=== PATIENT | male | born 1930 | race Caucasian/White ===

== ENCOUNTER → 2016-11-22 | Outpatient (CLI) | payer MEDICARE, BC ==
--- NOTE | 2016-11-22 15:53 | XR ---
EXAMINATION TYPE: XR chest 2V DATE OF EXAM: 11/22/2016 3:49 PM COMPARISON: 10/05/2012 INDICATION: Cough TECHNIQUE: Frontal and lateral views of the chest are obtained. FINDINGS: The heart size is normal. The pulmonary vasculature is normal. The lungs are clear. Spondylosis is present. Pacemaker overlies left chest. 2 leads are present. IMPRESSION: 1. No acute pulmonary process.
== END | disposition home or self-care (01) ==
LOC: RADXRMAIN 15:39
PROVIDERS: ATTEND Internal Medicine
DX: R05 Cough (principal)
CPT/HCPCS: 71020

== ENCOUNTER → 2017-04-04 | Outpatient (CLI) | payer MEDICARE, BC ==
[2017-04-04 16:36] LABS: CH 33.2; CHCM 33.2; HDW 2.49; HGB 13.2 gm/dL (13.0-17.5); MCH 34.1 pg (25.0-35.0); MCV 100.5 fL (80.0-100.0); Macrocytosis Slight; Mean Platelet Volume 6.9; RBC 3.88 m/uL (4.30-5.90); RDW 14.6 % (11.5-15.5); WBC 9.9 k/uL (3.8-10.6)
[2017-04-04 16:48] LABS: Anion Gap 9 mmol/L; Blood Urea Nitrogen 25 mg/dL (9-20); Calcium 8.9 mg/dL (8.4-10.2); Carbon Dioxide 27 mmol/L (22-30); Chloride 108 mmol/L (98-107); Glucose 109 mg/dL (74-99); Non-African American GFR(MDRD) >60 (>60 ml/min/1.73 sqM); Potassium 4.8 mmol/L (3.5-5.1); Sodium 144 mmol/L (137-145)
== END ==
LOC: LABWHC1 15:55
PROVIDERS: ATTEND Internal Medicine Interventional Cardiology
DX: I25.10 Atherosclerotic heart disease of native coronary artery without angina pectoris (principal); I49.5 Sick sinus syndrome
CPT/HCPCS: 36415; 80048; 85027

== ENCOUNTER → 2017-09-09 | Outpatient (CLI) | payer MEDICARE, BC ==
--- NOTE | 2017-09-09 13:52 | XR ---
EXAMINATION TYPE: XR chest 2V DATE OF EXAM: 09/09/2017 COMPARISON: NONE INDICATION: Cough TECHNIQUE: Frontal and lateral views of the chest are obtained. FINDINGS: The heart size is normal. The pulmonary vasculature is normal. Appears to be some minimal blunting the right costophrenic angle. Correlate for atelectasis. IMPRESSION: 1. Suggestion of minimal atelectasis right costophrenic angle.
== END | disposition home or self-care (01) ==
LOC: RADXRMAIN 12:56
PROVIDERS: ATTEND Internal Medicine
DX: R05 Cough (principal)
CPT/HCPCS: 71020

== ENCOUNTER 2018-03-05 00:47 | Inpatient (IN) | payer MEDICARE, BC ==
--- NOTE | 2018-03-05 01:00 | ED ---
General Adult HPI - General Chief complaint: Chest Pain Stated complaint: Chest Pain Time Seen by Provider: 03/05/18 00:54 Source: patient, EMS Mode of arrival: EMS Limitations: no limitations - History of Present Illness Initial comments: This patient is an 88-year-old man brought by ambulance to be evaluated for not feeling well. The patient reports that he has not been feeling well since the morning, going on about 16 hours now. He states he is not able to characterize his symptoms well. When he started having some vomiting EMS was called and brought him here to be evaluated. The patient is denying any chest pain or dyspnea. He is in fact not having pain anywhere. Onset/Timin -: hour(s) Consistency: constant Improves with: none Worsens with: none Associated Symptoms: malaise Treatments Prior to Arrival: none - Related Data Home Medications Medication Instructions Recorded Confirmed Aspirin 81 mg PO BID 03/28/14 03/05/18 Gabapentin [Neurontin] 300 mg PO DAILY 03/28/14 03/05/18 Montelukast [Singulair] 10 mg PO DAILY 03/28/14 03/05/18 Omeprazole [PriLOSEC] 20 mg PO BID 03/28/14 03/05/18 Phenytoin Sodium Extended 300 mg PO BID 03/28/14 03/05/18 [Dilantin] Budesonide [Pulmicort] 0 mg INHALATION BID 03/29/14 03/05/18 Multivitamin [Men's Multi-Vitamin] 1 tab PO DAILY 03/29/14 03/05/18 Anacin 500 mg PO DAILY PRN 03/05/18 03/05/18 Ascorbic Acid [Vitamin C] 500 mg PO HS 03/05/18 03/05/18 Citalopram Hydrobromide 20 mg PO BID 03/05/18 03/05/18 [Citalopram HBr] Glucosamine Sulfate 1,500 mg PO HS 03/05/18 03/05/18 Loperamide HCl [Imodium A-D] 2 mg PO DAILY PRN 03/05/18 03/05/18 Magnesium Oxide [Mag-Ox] 250 mg PO HS 03/05/18 03/05/18 Metoprolol Succinate (ER) [Toprol 50 mg PO DAILY 03/05/18 03/05/18 Xl] Tart Prabhakar 1 tab PO HS 03/05/18 03/05/18 diphenhydrAMINE [Benadryl] 25 mg PO DAILY PRN 03/05/18 03/05/18 levETIRAcetam [Keppra] 500 mg PO Q12HR 03/05/18 03/05/18 Allergies Allergy/AdvReac Type Severity Reaction Status Date / Time adhesive Allergy Rash/Hives Verified 03/05/18 11:09 iodine Allergy Anaphylaxis Verified 03/05/18 11:09 Review of Systems ROS Statement: Those systems with pertinent positive or pertinent negative responses have been documented in the HPI. ROS Other: All systems not noted in ROS Statement are negative. Constitutional: Reports: weakness Respiratory: Reports: cough. Denies: dyspnea Cardiovascular: Denies: chest pain, orthopnea, edema, syncope Endocrine: Reports: fatigue Gastrointestinal: Reports: vomiting. Denies: abdominal pain Genitourinary: Denies: dysuria, hematuria Musculoskeletal: Denies: back pain Skin: Denies: rash Neurological: Denies: headache Past Medical History Past Medical History: Asthma, Hypertension, Seizure Disorder Additional Past Medical History / Comment(s): gout, joint, History of Any Multi-Drug Resistant Organisms: None Reported Past Surgical History: Unable to Obtain, Orthopedic Surgery Past Psychological History: Depression Smoking Status: Never smoker Past Alcohol Use History: Daily Past Drug Use History: None Reported General Exam Limitations: no limitations General appearance: alert, in distress Head exam: Absent: atraumatic, normocephalic Eye exam: Present: normal appearance ENT exam: Present: mucous membranes dry Neck exam: Present: normal inspection, full ROM Respiratory exam: Present: respiratory distress. Absent: wheezes, rales, rhonchi, stridor Cardiovascular Exam: Present: normal rhythm, tachycardia, systolic murmur. Absent: diastolic murmur, rubs, gallop GI/Abdominal exam: Present: soft. Absent: distended, tenderness, guarding, rebound, rigid, mass Extremities exam: Present: normal inspection, normal capillary refill. Absent: pedal edema, calf tenderness Back exam: Present: normal inspection. Absent: CVA tenderness (R), CVA tenderness (L) Neurological exam: Present: alert Skin exam: Present: warm, dry, intact, normal color. Absent: rash Course Vital Signs 03/05/18 03/05/18 03/05/18 00:48 02:20 03:13 Temperature 101.5 F H 101.7 F H Pulse Rate 125 H 106 H 101 H Respiratory 30 H 18 22 Rate Blood Pressure 148/67 126/60 97/55 O2 Sat by Pulse 94 L 93 L 93 L Oximetry 03/05/18 03/05/18 03/05/18 03:55 04:05 04:15 Temperature Pulse Rate 88 99 96 Respiratory 18 18 18 Rate Blood Pressure 77/41 100/53 90/46 O2 Sat by Pulse 96 94 L 94 L Oximetry 03/05/18 03/05/18 04:28 04:52 Temperature Pulse Rate 94 93 Respiratory 18 18 Rate Blood Pressure 97/55 102/54 O2 Sat by Pulse 94 L 95 Oximetry EKG Findings - EKG Comments: EKG Findings:: Total EKG does show sinus tachycardia with a rate of 123. There is a left bundle-branch block which was present on the comparison EKG from March 2014. Also pre-existing left axis deviation. - EKG Results: EKG: interpreted by ERMD, sinus rhythm (Rate approximate 123 bpm) - Blocks, Flushing, Hypertrophy, ST Abn: AV and intraventricular conduction: left bundle branch block (fixed/intermittent , complete/incomplete) QRS axis and voltage: left axis deviation (-30 to -90) Medical Decision Making - Lab Data Result diagrams: 03/08/18 05:51 03/08/18 05:51 Lab Results 03/05/18 03/05/18 03/05/18 Range/Units 00:53 00:53 00:53 WBC 10.4 (3.8-10.6) k/uL RBC 4.11 L (4.30-5.90) m/uL Hgb 12.9 L (13.0-17.5) gm/dL Hct 38.1 L (39.0-53.0) % MCV 92.7 (80.0-100.0) fL MCH 31.3 (25.0-35.0) pg MCHC 33.8 (31.0-37.0) g/dL RDW 14.3 (11.5-15.5) % Plt Count 260 (150-450) k/uL Neutrophils % 81 % Lymphocytes % 14 % Monocytes % 1 % Eosinophils % 4 % Basophils % 0 % Neutrophils # 8.4 H (1.3-7.7) k/uL Lymphocytes # 1.5 (1.0-4.8) k/uL Monocytes # 0.1 (0-1.0) k/uL Eosinophils # 0.4 (0-0.7) k/uL Basophils # 0.0 (0-0.2) k/uL PT (9.0-12.0) sec INR (<1.2) APTT (22.0-30.0) sec Sodium 142 (137-145) mmol/L Potassium 4.2 (3.5-5.1) mmol/L Chloride 106 (98-107) mmol/L Carbon Dioxide 17 L (22-30) mmol/L Anion Gap 19 mmol/L BUN 19 (9-20) mg/dL Creatinine 1.00 (0.66-1.25) mg/dL Est GFR (CKD-EPI)AfAm 78 (>60 ml/min/1.73 sqM) Est GFR (CKD-EPI)NonAf 67 (>60 ml/min/1.73 sqM) Glucose 177 H (74-99) mg/dL Lactic Ac Sepsis Rflx Plasma Lactic Acid Stanford 5.0 H* (0.7-2.0) mmol/L Calcium 9.1 (8.4-10.2) mg/dL Total Bilirubin 0.4 (0.2-1.3) mg/dL AST 38 (17-59) U/L ALT 24 (21-72) U/L Alkaline Phosphatase 182 H (38-126) U/L Troponin I (0.000-0.034) ng/mL NT-Pro-B Natriuret Pep pg/mL Total Protein 7.1 (6.3-8.2) g/dL Albumin 3.8 (3.5-5.0) g/dL Urine Color Urine Appearance (Clear) Urine pH (5.0-8.0) Ur Specific [place] (1.001-1.035) Urine Protein (Negative) Urine Glucose (UA) (Negative) Urine Ketones (Negative) Urine Blood (Negative) Urine Nitrite (Negative) Urine Bilirubin (Negative) Urine Urobilinogen (<2.0) mg/dL Ur Leukocyte Esterase (Negative) Urine RBC (0-5) /hpf Urine WBC (0-5) /hpf Ur Squamous Epith Cells (0-4) /hpf Urine Bacteria (None) /hpf Urine Mucus (None) /hpf 05/06/18 05/06/18 05/06/18 Range/Units 00:53 00:53 00:53 WBC (3.8-10.6) k/uL RBC (4.30-5.90) m/uL Hgb (13.0-17.5) gm/dL Hct (39.0-53.0) % MCV (80.0-100.0) fL MCH (25.0-35.0) pg MCHC (31.0-37.0) g/dL RDW (11.5-15.5) % Plt Count (150-450) k/uL Neutrophils % % Lymphocytes % % Monocytes % % Eosinophils % % Basophils % % Neutrophils # (1.3-7.7) k/uL Lymphocytes # (1.0-4.8) k/uL Monocytes # (0-1.0) k/uL Eosinophils # (0-0.7) k/uL Basophils # (0-0.2) k/uL PT 10.6 (9.0-12.0) sec INR 1.1 (<1.2) APTT 18.9 L (22.0-30.0) sec Sodium (137-145) mmol/L Potassium (3.5-5.1) mmol/L Chloride (98-107) mmol/L Carbon Dioxide (22-30) mmol/L Anion Gap mmol/L BUN (9-20) mg/dL Creatinine (0.66-1.25) mg/dL Est GFR (CKD-EPI)AfAm (>60 ml/min/1.73 sqM) Est GFR (CKD-EPI)NonAf (>60 ml/min/1.73 sqM) Glucose (74-99) mg/dL Lactic Ac Sepsis Rflx Plasma Lactic Acid Stanford (0.7-2.0) mmol/L Calcium (8.4-10.2) mg/dL Total Bilirubin (0.2-1.3) mg/dL AST (17-59) U/L ALT (21-72) U/L Alkaline Phosphatase (38-126) U/L Troponin I 0.175 H* (0.000-0.034) ng/mL NT-Pro-B Natriuret Pep 740 pg/mL Total Protein (6.3-8.2) g/dL Albumin (3.5-5.0) g/dL Urine Color Urine Appearance (Clear) Urine pH (5.0-8.0) Ur Specific [place] (1.001-1.035) Urine Protein (Negative) Urine Glucose (UA) (Negative) Urine Ketones (Negative) Urine Blood (Negative) Urine Nitrite (Negative) Urine Bilirubin (Negative) Urine Urobilinogen (<2.0) mg/dL Ur Leukocyte Esterase (Negative) Urine RBC (0-5) /hpf Urine WBC (0-5) /hpf Ur Squamous Epith Cells (0-4) /hpf Urine Bacteria (None) /hpf Urine Mucus (None) /hpf 03/05/18 03/05/18 Range/Units 01:27 01:28 WBC (3.8-10.6) k/uL RBC (4.30-5.90) m/uL Hgb (13.0-17.5) gm/dL Hct (39.0-53.0) % MCV (80.0-100.0) fL MCH (25.0-35.0) pg MCHC (31.0-37.0) g/dL RDW (11.5-15.5) % Plt Count (150-450) k/uL Neutrophils % % Lymphocytes % % Monocytes % % Eosinophils % % Basophils % % Neutrophils # (1.3-7.7) k/uL Lymphocytes # (1.0-4.8) k/uL Monocytes # (0-1.0) k/uL Eosinophils # (0-0.7) k/uL Basophils # (0-0.2) k/uL PT (9.0-12.0) sec INR (<1.2) APTT (22.0-30.0) sec Sodium (137-145) mmol/L Potassium (3.5-5.1) mmol/L Chloride (98-107) mmol/L Carbon Dioxide (22-30) mmol/L Anion Gap mmol/L BUN (9-20) mg/dL Creatinine (0.66-1.25) mg/dL Est GFR (CKD-EPI)AfAm (>60 ml/min/1.73 sqM) Est GFR (CKD-EPI)NonAf (>60 ml/min/1.73 sqM) Glucose (74-99) mg/dL Lactic Ac Sepsis Rflx Y Plasma Lactic Acid Stanford (0.7-2.0) mmol/L Calcium (8.4-10.2) mg/dL Total Bilirubin (0.2-1.3) mg/dL AST (17-59) U/L ALT (21-72) U/L Alkaline Phosphatase (38-126) U/L Troponin I (0.000-0.034) ng/mL NT-Pro-B Natriuret Pep pg/mL Total Protein (6.3-8.2) g/dL Albumin (3.5-5.0) g/dL Urine Color Yellow Urine Appearance Clear (Clear) Urine pH 5.5 (5.0-8.0) Ur Specific [place] 1.011 (1.001-1.035) Urine Protein Trace H (Negative) Urine Glucose (UA) Negative (Negative) Urine Ketones Negative (Negative) Urine Blood Small H (Negative) Urine Nitrite Negative (Negative) Urine Bilirubin Negative (Negative) Urine Urobilinogen <2.0 (<2.0) mg/dL Ur Leukocyte Esterase Negative (Negative) Urine RBC 27 H (0-5) /hpf Urine WBC 1 (0-5) /hpf Ur Squamous Epith Cells <1 (0-4) /hpf Urine Bacteria Rare H (None) /hpf Urine Mucus Rare H (None) /hpf Disposition Clinical Impression: Fever, Sepsis, Lactic acidosis Disposition: ADMITTED IP TO THIS [facility] Condition: Serious
[2018-03-05 01:09] LABS: Basophils % (A) 0 %; Eosinophils # (A) 0.4 k/uL (0-0.7); Eosinophils % (A) 4 %; HCT 38.1 % (39.0-53.0); HGB 12.9 gm/dL (13.0-17.5); Lymphocytes # (A) 1.5 k/uL (1.0-4.8); Lymphocytes % (A) 14 %; MCH 31.3 pg (25.0-35.0); MCHC 33.8 g/dL (31.0-37.0); MCV 92.7 fL (80.0-100.0); Mean Platelet Volume 6.9; Monocytes # (A) 0.1 k/uL (0-1.0); Monocytes % (A) 1 %; Neutrophils # (A) 8.4 k/uL (1.3-7.7); Neutrophils % (A) 81 %; Platelet Count 260 k/uL (150-450); RBC 4.11 m/uL (4.30-5.90); RDW 14.3 % (11.5-15.5); WBC 10.4 k/uL (3.8-10.6)
[2018-03-05] MEDS ORDERED: cefTRIAXone IN SWFI 1,000 MG/10 ML SYRINGE IVP STA (01:11)
[2018-03-05] MEDS ORDERED: ONDANSETRON 4 MG/2 ML VIAL IVP STA (01:15)
--- NOTE | 2018-03-05 01:20 | XR ---
EXAM: XR Chest, 1 View CLINICAL HISTORY: ITS.REASON XR Reason: Fever TECHNIQUE: Frontal view of the chest. COMPARISON: No relevant prior studies available. FINDINGS: Lungs: Unremarkable. No consolidation. Pleural space: Unremarkable. No pneumothorax. Heart: Unremarkable. No cardiomegaly. Mediastinum: Unremarkable. Bones/joints: Unremarkable. Other findings: Left chest pulse generator in place. IMPRESSION: No acute findings.
[2018-03-05 01:21] LABS: Albumin 3.8 g/dL (3.5-5.0); Calcium 9.1 mg/dL (8.4-10.2); Potassium 4.2 mmol/L (3.5-5.1); Total Bilirubin 0.4 mg/dL (0.2-1.3); Total Protein 7.1 g/dL (6.3-8.2)
[2018-03-05] MEDS ORDERED: SODIUM CHLORIDE 0.9% 2,000 ML IV ONE (01:23)
[2018-03-05 01:28] LABS: INR 1.1 (<1.2)
[2018-03-05 01:29] LABS: Prothrombin Time 10.6 sec (9.0-12.0)
[2018-03-05 01:44] LABS: Appearance,Urine Clear (Clear); Bacteria,Urine Rare /hpf; Bilirubin,Urine Negative (Negative); Blood,Urine Small (Negative); Color,Urine Yellow; Glucose,Urine (UA) Negative (Negative); Ketones,Urine Negative (Negative); Leukocyte Esterase,Urine Negative (Negative); Mucus,Urine Rare /hpf; Nitrite,Urine Negative (Negative); PH, Urine 5.5 (5.0-8.0); Protein,Urine Trace (Negative); RBC,Urine 27 /hpf (0-5); Specific Gravity,Urine 1.011 (1.001-1.035); Squamous Epithelial Cell,Urine <1 /hpf (0-4); Urobilinogen,Urine <2.0 mg/dL (<2.0); WBC,Urine 1 /hpf (0-5)
[2018-03-05 01:45] LABS: Partial Thromboplastin Time 18.9 sec (22.0-30.0)
[2018-03-05] MEDS ORDERED: SODIUM CHLORIDE 0.9% 1,000 ML IV ONE (02:12)
[2018-03-05] MEDS ORDERED: ACETAMINOPHEN TAB 325 MG TAB PO STA (02:12)
[2018-03-05] MEDS ORDERED: IBUPROFEN 600 MG TAB PO STA (03:17)
[2018-03-05] MEDS ORDERED: AZITHROMYCIN 500 MG TAB PO STA (03:36)
[2018-03-05 07:55] VITALS: BMI 30.2
[2018-03-05] MEDS: METOPROLOL SUCCINATE (ER) 50 MG TAB.ER.24H PO SCH (08:09)
[2018-03-05] MEDS: CITALOPRAM HYDROBROMIDE 20 MG TAB PO SCH (08:18)
[2018-03-05] MEDS: FAMOTIDINE 20 MG/2 ML VIAL IV SCH ×2 (08:18→20:45)
[2018-03-05] MEDS: ASPIRIN 81 MG PO SCH ×2 (08:18→20:41)
[2018-03-05] MEDS: GABAPENTIN 300 MG CAP PO SCH (08:18)
[2018-03-05] MEDS: PHENYTOIN SODIUM EXTENDED 100 MG CAP PO SCH ×2 (08:18→20:41)
[2018-03-05] MEDS: MONTELUKAST 10 MG TAB PO SCH (08:18)
[2018-03-05] MEDS ORDERED: NON-FORMULARY DRUG (Omeprazole [Prilosec] 20 MG) PO SCH (09:00)
[2018-03-05] MEDS: BUDESONIDE 0.5 MG/2 ML NEBU INHALATION SCH ×2 (11:45→20:48)
[2018-03-05] MEDS: MULTIVITAMINS, THERA 1 EACH TAB PO SCH (12:01)
[2018-03-05] MEDS ORDERED: VANCOMYCIN IV PER PHARMACY 1 EACH MISC MISCELLANE PRN (12:42)
--- NOTE | 2018-03-05 13:05 | P.HPIM ---
History of Present Illness H&P Date: 03/05/18 Chief Complaint: Generalized weakness and shaking chills Bobby Del Valle is an 88-year-old male patient of Dr. Adams who presented to [facility] emergency room with a chief complaint of generalized weakness that started about 24 hours prior to presentation and has been worsening, patient also started having shaking chills at home and he decided to come to emergency room, he was evaluated in the emergency room, and had evidence of sepsis, patient had tachycardia with a heart rate of 125, tachypnea with a respiratory rate of 30, fever with a temperature of 101.5, and elevated lactic acid at 5, no clear source of infection was established, patient had chest x-ray which was described as normal, and urine analysis that did not show any significant infection, patient denies any skin ulcerations or infections, he was started on IV antibiotics and IV fluid and was admitted to telemetry floor. Blood culture and urine culture were done, this morning 2 blood culture were positive for gram-positive cocci in pairs and in chains, IV vancomycin was added to her regimen and infectious disease consultation was requested. Also during the initial evaluation troponin level was slightly elevated, cardiology consultation was requested. Past Medical History Past Medical History: Asthma, Hypertension, Seizure Disorder Additional Past Medical History / Comment(s): gout, joint, History of Any Multi-Drug Resistant Organisms: None Reported Past Surgical History: Unable to Obtain, Orthopedic Surgery Additional Past Surgical History / Comment(s): History of pacemaker placement initially placed 8 years ago and replaced about 1 year ago patient had a recent pacemaker check at cardiology office. Past Anesthesia/Blood Transfusion Reactions: No Reported Reaction Past Psychological History: Depression Smoking Status: Never smoker Past Alcohol Use History: Daily Past Drug Use History: None Reported Medications and Allergies Home Medications Medication Instructions Recorded Confirmed Type Aspirin 81 mg PO BID 03/28/14 03/05/18 History Gabapentin [Neurontin] 300 mg PO DAILY 03/28/14 03/05/18 History Montelukast [Singulair] 10 mg PO DAILY 03/28/14 03/05/18 History Omeprazole [PriLOSEC] 20 mg PO BID 03/28/14 03/05/18 History Phenytoin Sodium Extended 300 mg PO BID 03/28/14 03/05/18 History [Dilantin] Budesonide [Pulmicort] 0 mg INHALATION BID 03/29/14 03/05/18 History Multivitamin [Men's Multi-Vitamin] 1 tab PO DAILY 03/29/14 03/05/18 History Anacin 500 mg PO DAILY PRN 03/05/18 03/05/18 History Ascorbic Acid [Vitamin C] 500 mg PO HS 03/05/18 03/05/18 History Citalopram Hydrobromide 20 mg PO BID 03/05/18 03/05/18 History [Citalopram HBr] Glucosamine Sulfate 1,500 mg PO HS 03/05/18 03/05/18 History Loperamide HCl [Imodium A-D] 2 mg PO DAILY PRN 03/05/18 03/05/18 History Magnesium Oxide [Mag-Ox] 250 mg PO HS 03/05/18 03/05/18 History Metoprolol Succinate (ER) [Toprol 50 mg PO DAILY 03/05/18 03/05/18 History Xl] Tart Prabhakar 1 tab PO HS 03/05/18 03/05/18 History diphenhydrAMINE [Benadryl] 25 mg PO DAILY PRN 03/05/18 03/05/18 History levETIRAcetam [Keppra] 500 mg PO Q12HR 03/05/18 03/05/18 History Allergies Allergy/AdvReac Type Severity Reaction Status Date / Time adhesive Allergy Rash/Hives Verified 03/05/18 11:09 iodine Allergy Anaphylaxis Verified 03/05/18 11:09 Physical Exam Vitals: Vital Signs Temp Pulse Pulse Resp BP BP Pulse Ox 03/05/18 12:00 70 16 03/05/18 11:53 68 03/05/18 11:45 68 03/05/18 11:24 98.1 F 70 16 96/54 96 03/05/18 07:57 97.6 F 86 18 93/54 95 03/05/18 06:21 99.9 F H 95 18 105/75 94 L 03/05/18 04:52 93 18 102/54 95 03/05/18 04:28 94 18 97/55 94 L 03/05/18 04:15 96 18 90/46 94 L 03/05/18 04:05 99 18 100/53 94 L 03/05/18 03:55 88 18 77/41 96 03/05/18 03:13 101.7 F H 101 H 22 97/55 93 L 03/05/18 02:20 106 H 18 126/60 93 L 03/05/18 00:48 101.5 F H 125 H 30 H 148/67 94 L Intake and Output 03/04/18 03/05/18 03/05/18 22:59 06:59 14:59 Other: Weight 92.9 kg 92.9 kg In general patient is alert and oriented 3 in no apparent distress HEENT head normocephalic and atraumatic Neck is supple no JVD no goiter no lymphadenopathy Chest exam reveals a few scattered rhonchi no wheezing Cardiac exam reveals regular heart sounds no gallops no murmurs Abdomen is soft nontender no organomegaly with normal bowel sounds Extremity exam reveals no edema no cyanosis or clubbing Neurological examination reveals no gross focal deficit Results CBC & Chem 7: 03/05/18 00:53 03/05/18 00:53 Labs: Abnormal Lab Results - Last 24 Hours (Table) 03/05/18 03/05/18 03/05/18 Range/Units 00:53 00:53 00:53 RBC 4.11 L (4.30-5.90) m/uL Hgb 12.9 L (13.0-17.5) gm/dL Hct 38.1 L (39.0-53.0) % Neutrophils # 8.4 H (1.3-7.7) k/uL APTT (22.0-30.0) sec Carbon Dioxide 17 L (22-30) mmol/L Glucose 177 H (74-99) mg/dL Plasma Lactic Acid Stanford 5.0 H* (0.7-2.0) mmol/L Alkaline Phosphatase 182 H (38-126) U/L Troponin I (0.000-0.034) ng/mL Urine Protein (Negative) Urine Blood (Negative) Urine RBC (0-5) /hpf Urine Bacteria (None) /hpf Urine Mucus (None) /hpf 03/05/18 03/05/18 03/05/18 Range/Units 00:53 00:53 01:27 RBC (4.30-5.90) m/uL Hgb (13.0-17.5) gm/dL Hct (39.0-53.0) % Neutrophils # (1.3-7.7) k/uL APTT 18.9 L (22.0-30.0) sec Carbon Dioxide (22-30) mmol/L Glucose (74-99) mg/dL Plasma Lactic Acid Stanford (0.7-2.0) mmol/L Alkaline Phosphatase (38-126) U/L Troponin I 0.175 H* (0.000-0.034) ng/mL Urine Protein Trace H (Negative) Urine Blood Small H (Negative) Urine RBC 27 H (0-5) /hpf Urine Bacteria Rare H (None) /hpf Urine Mucus Rare H (None) /hpf 03/05/18 Range/Units 03:50 RBC (4.30-5.90) m/uL Hgb (13.0-17.5) gm/dL Hct (39.0-53.0) % Neutrophils # (1.3-7.7) k/uL APTT (22.0-30.0) sec Carbon Dioxide (22-30) mmol/L Glucose (74-99) mg/dL Plasma Lactic Acid Stanford 2.3 H* (0.7-2.0) mmol/L Alkaline Phosphatase (38-126) U/L Troponin I (0.000-0.034) ng/mL Urine Protein (Negative) Urine Blood (Negative) Urine RBC (0-5) /hpf Urine Bacteria (None) /hpf Urine Mucus (None) /hpf Microbiology - Last 24 Hours (Table) 03/04/18 00:53 Blood Culture Gram Stain - Preliminary Blood 03/05/18 00:53 Blood Culture - Final Blood 03/05/18 01:27 Urine Culture - Preliminary Urine,Voided Thrombosis Risk Factor Assmnt - Choose All That Apply Any of the Below Risk Factors Present?: Yes Each Factor Represents 1 point: Obesity (BMI >25) Other Risk Factors: Yes Each Risk Factor Represents 3 Points: Age 75 years or older Thrombosis Risk Factor Assessment Total Risk Factor Score: 4 Thrombosis Risk Factor Assessment Level: Moderate Risk Assessment and Plan Plan: #1 sepsis, initial source of infection is not entirely clear, chest x-ray does not reveal any evidence of pneumonia, and urine analysis did not reveal any significant urinary tract infection, blood culture is positive for gram- positive cocci in pairs and in chains, currently patient was started on IV Rocephin and IV Zithromax in the emergency room for presumed bronchitis, IV vancomycin was added when blood culture results were positive. Continue with current management at this time, initial lactic acid at 5, patient is maintained on IV fluid, repeat d-dimer at 2.3 #2 elevated troponin level cardiology consultation is requested. #3 underlying history of seizure disorder maintained on Dilantin continue #4 underlying history of hypertension maintained on metoprolol #5 underlying history of cardiac arrhythmia was history of pacemaker placement #6 underlying history of asthma maintained on Pulmicort and Singulair continue #7 underlying history of depression maintained on Celebrex continue Medication and labs were reviewed patient was seen and examined Continue was current management, IV vancomycin was added Will recheck labs in a.m. Will follow closely
[2018-03-05] MEDS: SODIUM CHLORIDE 0.9% 1,000 ML IV SCH ×2 (13:27→20:44)
[2018-03-05] MEDS ORDERED: VANCOMYCIN 1,750 MG in SODIUM CHLORIDE 0.9% 250 ML IVPB ONE (13:30)
--- NOTE | 2018-03-05 14:16 | CONS ---
CONSULTATION Mr. Del Valle is an 88-year-old gentleman who was brought to the emergency room because patient was not feeling well. Patient has not been feeling well since yesterday morning. He did not had any fever or chills. He has some nonproductive cough. The patient denied any chest pain, shortness of breath. This patient has a history of hypertension, history of seizure disorder. History of asthma and history of permanent pacemaker. HOME MEDICATIONS: Include metoprolol 50 mg daily, citalopram, Pulmicort, Dilantin, aspirin, gabapentin, singular, Prilosec. PHYSICAL EXAMINATIONS: In the emergency room this patient was noticed to have a temperature of 101.5. Blood pressure was 148/67 mmHg and the patient was tachycardic. At present, patient is feeling well. He is not in any respiratory distress. Heart rate is 70 per minute, blood pressure is 100/54 mmHg. Head and ENT examination is negative. NECK: Supple. There is no increase in jugular venous pressure. Both the carotid pulses are felt. There is no bruit. Chest is symmetrical. Heart: First and second heart sounds are normal. Lungs are fairly clear to auscultation and percussion. ABDOMEN: Soft. Liver and spleen are not enlarged. Extremities: Peripheral pulses are 1+. Patient's EKG shows sinus tachycardia with left bundle branch block. The patient's lactic acid was 5.0. White count is 10.4, initial troponin was 0.1750. The patient's BNP level was 740. IMPRESSION: This patient is admitted with infection and possible sepsis syndrome with EKGs shows normal sinus rhythm with a left bundle branch block. There is no evidence of any acute coronary syndrome. Echo and Doppler study will be obtained. MMODL / IJN: [id number] /
[2018-03-05] MEDS ORDERED: AZITHROMYCIN 500 MG TAB PO SCH (21:00)
[2018-03-06] MEDS: VANCOMYCIN 1,500 MG in SODIUM CHLORIDE 0.9% 250 ML IVPB SCH ×2 (04:11→20:12)
[2018-03-06] MEDS: BUDESONIDE 0.5 MG/2 ML NEBU INHALATION SCH ×2 (08:03→19:45)
[2018-03-06] MEDS ORDERED: BENZOCAINE/MENTHOL LOZENG 1 EACH LOZENGE MUCOUS MEM PRN (08:45)
[2018-03-06] MEDS: CITALOPRAM HYDROBROMIDE 20 MG TAB PO SCH (08:46)
[2018-03-06] MEDS: GABAPENTIN 300 MG CAP PO SCH (08:46)
[2018-03-06] MEDS: ASPIRIN 81 MG PO SCH ×2 (08:46→20:11)
[2018-03-06] MEDS: levETIRAcetam 500 MG TAB PO SCH ×2 (08:46→20:12)
[2018-03-06] MEDS: METOPROLOL SUCCINATE (ER) 50 MG TAB.ER.24H PO SCH (08:46)
[2018-03-06] MEDS: FAMOTIDINE 20 MG/2 ML VIAL IV SCH (08:47)
[2018-03-06] MEDS: MONTELUKAST 10 MG TAB PO SCH (08:47)
[2018-03-06] MEDS: MULTIVITAMINS, THERA 1 EACH TAB PO SCH (08:47)
[2018-03-06] MEDS: PHENYTOIN SODIUM EXTENDED 100 MG CAP PO SCH ×2 (08:47→20:12)
[2018-03-06 09:13] LABS: Basophils # (A) 0.1 k/uL (0-0.2); Basophils % (A) 0 %; Eosinophils # (A) 0.2 k/uL (0-0.7); Eosinophils % (A) 1 %; HCT 30.4 % (39.0-53.0); HGB 10.4 gm/dL (13.0-17.5); Lymphocytes # (A) 1.7 k/uL (1.0-4.8); Lymphocytes % (A) 6 %; MCH 32.3 pg (25.0-35.0); MCHC 34.3 g/dL (31.0-37.0); MCV 93.9 fL (80.0-100.0); Monocytes # (A) 0.7 k/uL (0-1.0); Monocytes % (A) 2 %; Neutrophils # (A) 27.6 k/uL (1.3-7.7); Neutrophils % (A) 90 %; Platelet Count 176 k/uL (150-450); RBC 3.23 m/uL (4.30-5.90); RDW 14.7 % (11.5-15.5)
[2018-03-06 09:15] LABS: ALT 31 U/L (21-72); AST 26 U/L (17-59); Albumin 2.6 g/dL (3.5-5.0); Alkaline Phosphatase 141 U/L (38-126); Anion Gap 10 mmol/L; Blood Urea Nitrogen 16 mg/dL (9-20); Calcium 7.6 mg/dL (8.4-10.2); Carbon Dioxide 19 mmol/L (22-30); Chloride 112 mmol/L (98-107); Glucose 184 mg/dL (74-99); Potassium 3.8 mmol/L (3.5-5.1); Sodium 141 mmol/L (137-145); Total Bilirubin 0.3 mg/dL (0.2-1.3); Total Protein 5.3 g/dL (6.3-8.2)
[2018-03-06 09:19] LABS: WBC 30.8 k/uL (3.8-10.6)
--- NOTE | 2018-03-06 11:30 | P.PN ---
Subjective Progress Note Date: 03/06/18 Bobby Del Valle is an 88-year-old male patient of Dr. Adams who presented to [facility] emergency room with a chief complaint of generalized weakness that started about 24 hours prior to presentation and has been worsening, patient also started having shaking chills at home and he decided to come to emergency room, he was evaluated in the emergency room, and had evidence of sepsis, patient had tachycardia with a heart rate of 125, tachypnea with a respiratory rate of 30, fever with a temperature of 101.5, and elevated lactic acid at 5, no clear source of infection was established, patient had chest x-ray which was described as normal, and urine analysis that did not show any significant infection, patient denies any skin ulcerations or infections, he was started on IV antibiotics and IV fluid and was admitted to telemetry floor. Blood culture and urine culture were done, this morning 2 blood culture were positive for gram-positive cocci in pairs and in chains, IV vancomycin was added to her regimen and infectious disease consultation was requested. Also during the initial evaluation troponin level was slightly elevated, cardiology consultation was requested. 03/06/2018 patient has had an increase in his white count to 30.8. Has been afebrile through the night and this morning. Discussed with infectious disease. Unasyn was added and they've ordered a computed tomography scan of the abdomen and pelvis. Patient also is on vancomycin. Patient reports that he is still having some cough and prior to admission also had some sinus congestion and now he does admit to having postnasal drip. Mucinex has been ordered. He denies any chest pain or shortness of breath. Per nursing patient had been slightly short of breath with earlier this morning but no significant change in vitals. Patient denies any diarrhea. Denies any burning with urination. Objective - Vital Signs Vital signs: Vital Signs Temp 97.7 F 03/06/18 08:30 Pulse 82 03/06/18 08:30 Resp 16 03/06/18 08:30 BP 160/78 03/06/18 08:30 Pulse Ox 94 L 03/06/18 08:30 Intake & Output 03/05/18 03/06/18 03/06/18 18:59 06:59 18:59 Intake Total 800 875 240 Output Total 500 600 Balance 800 375 -360 Weight 92.9 kg 94.6 kg Intake: Intake, IV Titration 800 750 Amount Sodium Chloride 0.9% 1, 800 500 000 ml @ 100 mls/hr IV . [facility]H [facility] Rx#:[id number] Vancomycin 1,750 mg In 250 Sodium Chloride 0.9% 250 ml @ 125 mls/hr IVPB ONCE ONE Rx#:[id number] Oral 125 240 Output: Urine 500 600 Other: # Voids 2 # Bowel Movements 1 0 - Exam Head normocephalic Neck supple Lungs mild wheezing improved with cough Heart regular rate and rhythm S1-S2, no rub or gallop Abdomen is soft nontender nondistended positive bowel sounds no hepatosplenomegaly Extremities no edema Neuro alert and orientated to 3 - Labs CBC & Chem 7: 03/06/18 08:41 03/06/18 08:41 Labs: Abnormal Lab Results - Last 24 Hours (Table) 03/06/18 03/06/18 Range/Units 08:41 08:41 WBC 30.8 H* (3.8-10.6) k/uL RBC 3.23 L (4.30-5.90) m/uL Hgb 10.4 L (13.0-17.5) gm/dL Hct 30.4 L (39.0-53.0) % Neutrophils # 27.6 H (1.3-7.7) k/uL Chloride 112 H (98-107) mmol/L Carbon Dioxide 19 L (22-30) mmol/L Glucose 184 H (74-99) mg/dL Calcium 7.6 L (8.4-10.2) mg/dL Alkaline Phosphatase 141 H (38-126) U/L Total Protein 5.3 L (6.3-8.2) g/dL Albumin 2.6 L (3.5-5.0) g/dL Microbiology - Last 24 Hours (Table) 03/04/18 00:53 Blood Culture Gram Stain - Preliminary Blood Blood Culture - Preliminary Non Hemolytic Strep 03/05/18 01:40 Blood Culture Gram Stain - Preliminary Blood Blood Culture - Preliminary Non Hemolytic Strep 03/05/18 01:40 Blood Culture - Final Blood 03/05/18 00:53 Blood Culture - Final Blood 03/05/18 01:27 Urine Culture - Preliminary Urine,Voided Assessment and Plan Assessment: #1 sepsis, initial source of infection is not entirely clear, chest x-ray does not reveal any evidence of pneumonia, and urine analysis did not reveal any significant urinary tract infection, blood culture is positive for gram- positive cocci in pairs and in chains, currently patient was started on IV Rocephin and IV Zithromax in the emergency room for presumed bronchitis, IV vancomycin was added when blood culture results were positive. Continue with current management at this time, initial lactic acid at 5 has decreased to 2.3 White count has increased to 30.8. Discussed with infectious disease. They've added Unasyn and ordered a computed tomography scan of the abdomen and pelvis #2 elevated troponin level : Patient seen by cardiology. No evidence of acute coronary syndrome. Echocardiogram ordered #3 underlying history of seizure disorder maintained on Dilantin and Keppra continue #4 underlying history of hypertension maintained on metoprolol #5 underlying history of cardiac arrhythmia was history of pacemaker placement #6 underlying history of asthma maintained on Pulmicort and Singulair continue #7 underlying history of depression maintained on Celebrex continue #8 anemia possibly related to IV fluids and sepsis. No evidence of active bleeding. Check iron studies. GI prophylaxis Pepcid and DVT prophylaxis Lovenox I performed an examination of the patient and discussed their management with the physician Associate Quality Engineer. I have reviewed the Physician Associate Quality Engineer's notes and agree with the documented findings and plan of care
--- NOTE | 2018-03-06 11:55 | ECHOF ---
Referral Reason:sob MEASUREMENTS -------- HEIGHT: 175.3 cm WEIGHT: 94.3 kg BP: 105/51 RVIDd: 3.7 cm (< 3.3) IVSd: 1.4 cm (0.6 - 1.1) LVIDd: 4.4 cm (3.9 - 5.3) LVPWd: 1.5 cm (0.6 - 1.1) IVSs: 1.8 cm LVIDs: 3.9 cm LVPWs: 1.5 cm LA Diam: 3.8 cm (2.7 - 3.8) LAESV Index (A-L): 41.10 ml/m Ao Diam: 3.6 cm (2.0 - 3.7) AV Cusp: 1.8 cm (1.5 - 2.6) LA Diam: 5.2 cm (2.7 - 3.8) MV EXCURSION: 21.866 mm (> 18.000) MV EF SLOPE: 102 mm/s (70 - 150) EPSS: 0.7 cm MV E Asa: 0.70 m/s MV DecT: 232 ms MV A Asa: 0.91 m/s MV E/A Ratio: 0.77 RAP: 5.00 mmHg RVSP: 60.88 mmHg FINDINGS -------- Paced rhythm. This was a technically adequate study. The left ventricular size is normal. There is mild concentric left ventricular hypertrophy. Overa ll left ventricular systolic function is low-normal with, an EF between 50 - 55 %. The right ventricle is mildly enlarged. The left atrium is moderately dilated. LA is severely dilated >40 ml/m2 The right atrial size is normal. The aortic valve is trileaflet, and appears structurally normal. No aortic stenosis or regurgitation. Mild mitral regurgitation is present. Moderate tricuspid regurgitation present. There is moderate pulmonary hypertension. The right aimee tricular systolic pressure, as measured by Doppler, is 60.88mmHg. There is no pulmonic regurgitation present. The aortic root size is normal. Normal inferior vena cava with normal inspiratory collapse consistent with estimated right atrial pre ssure of 5 mmHg. There is no pericardial effusion. CONCLUSIONS -------- 1. The left ventricular size is normal. 2. There is mild concentric left ventricular hypertrophy. 3. Overall left ventricular systolic function is low-normal with, an EF between 50 - 55 %. 4. The right ventricle is mildly enlarged. 5. The left atrium is moderately dilated. 6. LA is severely dilated >40 ml/m2 7. The aortic valve is trileaflet, and appears structurally normal. No aortic stenosis or regurgitati on. 8. Mild mitral regurgitation is present. 9. Moderate tricuspid regurgitation present. 10. There is moderate pulmonary hypertension. 11. The right ventricular systolic pressure, as measured by Doppler, is 60.88mmHg. 12. There is no pulmonic regurgitation present. 13. The aortic root size is normal. 14. Normal inferior vena cava with normal inspiratory collapse consistent with estimated right atrial pressure of 5 mmHg. 15. There is no pericardial effusion. [employer] LEAD WORKER: Roseanne Saldaña RDCS
--- NOTE | 2018-03-06 12:17 | CONS ---
CONSULTATION DATE OF SERVICE: 03/06/2018 REASON FOR CONSULTATION: Bacteremia. HISTORY OF PRESENT ILLNESS: The patient is an 88-year-old male who has been brought into the ER with chief complaints of generalized not feeling well, his symptoms have been going on for a day prior to presentation to the hospital. Patient told me that he was having uncontrolled shakiness. He was unable to control it but not specifically running any fever. He says no. However, on arrival to the ER, the patient did have a fever of 101.5 degrees Fahrenheit. Patient subsequently has been evaluated by the ER physician. Workup including a chest x-ray that was reported negative for any acute infiltrate. Patient did have a normal white count of 10.4 on admission. Lactic acid was elevated to 5.0, repeat was 2.3. Urine not significantly positive. The patient was started on Rocephin. His blood culture came back positive with gram-positive cocci that prompted this consultation and this morning his white count came to 30,000. Reviewing his ER sheet it did mention that patient did have an episode of vomiting prior to the presentation to the hospital; however, now specifically he denies having any vomiting or any abdominal pain or any diarrhea or constipation to me. History remains to be not be reliable from this patient. REVIEW OF SYSTEMS: CONSTITUTIONAL: Positive for weakness along with a fever. EYES: No complaint. ENT: No complaint. RESPIRATORY: Mild cough, that is chronic for him. CARDIOVASCULAR: No complaint. GENITOURINARY: No complaint. GASTROINTESTINAL: As per HPI. MUSCULOSKELETAL: No complaint. INTEGUMENTARY: No complaint. PSYCHOLOGICAL: No complaint. ENDOCRINE: No complaint. NEUROLOGIC: No complaint. PAST MEDICAL HISTORY: Significant for asthma, hypertension, seizure disorder, gout. PAST SURGICAL HISTORY: Pacemaker placement. SOCIAL HISTORY: No history of smoking. Positive for drinking, no drug use. FAMILY HISTORY: No pertinent findings noticed. ALLERGIES: To IODINE. MEDICATIONS: Include the patient is currently on aspirin, Pulmicort, Celexa, Pepcid, Neurontin, Mucinex, Keppra, Mag oxide, Toprol-XL, Singulair, Theragran, Dilantin and vancomycin pharmacy to dose. PHYSICAL EXAMINATION: Blood pressure 162/78 with a pulse of 82, temperature 97.7. He is 94% on room air. General description is an elderly male, lying in bed in no distress. No tachypnea or accessory muscle for respiration use. HEENT: Shows slight pallor. No scleral icterus. Oral mucosa is dry. No pharyngeal thrush neck trachea central no thyromegaly lungs unlabored breathing, decreased breath sounds in the bases no wheeze heart S1, S2. Regular rate and rhythm and rhythm. Abdomen is soft, no guarding, rigidity, no organomegaly. EXTREMITIES: No edema of the feet. SKIN EXAMINATION: No rash or mass palpable. NEUROLOGICAL: Patient is awake, alert, oriented x2, mood and affect normal. LABS: Hemoglobin 10.4, white count 30,000, BUN of 16 creatinine 0.72. Lactic acid 5 down to 2.3. Urine has been negative. chest report negative. DIAGNOSTIC IMPRESSION AND PLAN: Patient with sepsis in a patient did have a fever significantly elevated white count, elevated lactic acid, symptom of generalized weakness and did have an episode of vomiting with question of possible and intraabdominal source, now with evidence of Gram- positive bacteremia more of a gram-positive cocci in chains likely it was possible Enterococcus, more likely but etiology. PLAN: 1. We will check a CT abdominal pelvis with oral contrast only to rule out any intraabdominal pathology and should also rule out any infiltrate or consultation in the lung bases. 2. We will keep the patient on vancomycin while waiting for the final ID of this pathogen. However, discontinue Rocephin and start the patient on Unasyn 3 g q.6. 3. Gentle IV fluid. 4. Depending upon his clinical response, as well as cultures, will adjust the medication further if needed. Thank you for this consultation. Will follow this patient along with you. MMODL / IJN: [id number] /
[2018-03-06] MEDS: BARIUM SULFATE 450 ML ORAL.SUSP BOTTLE PO PRN ×2 (12:21→15:29)
[2018-03-06] MEDS: AMPICILLIN-SULBACTAM 3 GM in SODIUM CHLORIDE 0.9% 100 ML IVPB SCH ×3 (12:51→23:13)
[2018-03-06] MEDS: SODIUM CHLORIDE 0.9% 1,000 ML IV SCH ×2 (12:51→20:11)
[2018-03-06] MEDS: ENOXAPARIN 40 MG/0.4 ML SYRINGE SQ SCH (12:51)
[2018-03-06] MEDS: guaiFENesin 600 MG TABLET.ER PO SCH ×2 (15:23→20:11)
--- NOTE | 2018-03-06 15:25 | P.PN ---
Subjective Progress Note Date: 03/06/18 This is an 88-year-old patient presented to the hospital mainly with symptoms of generalized weakness as well as associated fever and chills at home. He was evaluated in the emergency room and had evidence of sepsis, he was also tachycardic with a heart rate in the 120s. Sinus tachycardia with left bundle branch block pattern. No evidence of acute coronary syndrome. Echocardiogram with Doppler study was performed which revealed a normal left ventricular systolic function. Moderate TR and moderate pulmonary hypertension. White blood cell count today is up to 30,000, consultation requested with ID. Objective - Vital Signs Vital signs: Vital Signs Temp 97.7 F 03/06/18 08:30 Pulse 78 03/06/18 11:50 Resp 18 03/06/18 11:50 BP 138/71 03/06/18 11:50 Pulse Ox 96 03/06/18 11:50 Intake & Output 03/05/18 03/06/18 03/06/18 18:59 06:59 18:59 Intake Total 482 147 5047 Output Total 500 600 Balance 800 375 540 Weight 92.9 kg 94.6 kg Intake: Intake, IV Titration 800 750 900 Amount Ampicillin-Sulbactam 3 gm 100 In Sodium Chloride 0.9% 100 ml @ 100 mls/hr IVPB Q6HR [facility] Rx#:[id number] Sodium Chloride 0.9% 1, 800 500 800 000 ml @ 100 mls/hr IV . Q10H [facility] Rx#:[id number] Vancomycin 1,750 mg In 250 Sodium Chloride 0.9% 250 ml @ 125 mls/hr IVPB ONCE ONE Rx#:[id number] Oral 125 240 Output: Urine 500 600 Other: # Voids 2 3 # Bowel Movements 1 0 - Exam PHYSICAL EXAMINATION: HEENT: Head is atraumatic, normocephalic. Pupils equal, round. Neck is supple. There is no elevated jugular venous pressure. HEART EXAMINATION: Heart S1, S2 normal. No murmur or gallop heard. CHEST EXAMINATION: Lungs are clear to auscultation and precussion. No chest wall tenderness is noted on palpation or with deep breathing. ABDOMEN: Soft, nontender. Bowel sounds are heard. No organomegaly noted. EXTREMITIES: 2+ peripheral pulses with no evidence of peripheral edema and no calf tenderness noted. NEUROLOGIC patient is awake, alert and oriented -3. . - Labs CBC & Chem 7: 03/06/18 08:41 03/06/18 08:41 Labs: Abnormal Lab Results - Last 24 Hours (Table) 03/06/18 03/06/18 Range/Units 08:41 08:41 WBC 30.8 H* (3.8-10.6) k/uL RBC 3.23 L (4.30-5.90) m/uL Hgb 10.4 L (13.0-17.5) gm/dL Hct 30.4 L (39.0-53.0) % Neutrophils # 27.6 H (1.3-7.7) k/uL Chloride 112 H (98-107) mmol/L Carbon Dioxide 19 L (22-30) mmol/L Glucose 184 H (74-99) mg/dL Calcium 7.6 L (8.4-10.2) mg/dL Alkaline Phosphatase 141 H (38-126) U/L Total Protein 5.3 L (6.3-8.2) g/dL Albumin 2.6 L (3.5-5.0) g/dL Microbiology - Last 24 Hours (Table) 03/05/18 01:27 Urine Culture - Final Urine,Voided 03/04/18 00:53 Blood Culture Gram Stain - Preliminary Blood Blood Culture - Preliminary Non Hemolytic Strep 03/05/18 01:40 Blood Culture Gram Stain - Preliminary Blood Blood Culture - Preliminary Non Hemolytic Strep 03/05/18 01:40 Blood Culture - Final Blood 03/05/18 00:53 Blood Culture - Final Blood Assessment and Plan Plan: Assessment and plan #1 sepsis, source of infection is not entirely clear, ideas on the surface. #2 abnormal troponin, not consistent with acute coronary syndrome, #3 hypertension #4 prior pacemaker implantation Number 5 seizure disorder Plan Echocardiogram with Doppler study was performed which revealed normal left ventricular systolic function. We will follow this patient along with you now on an as-needed basis only, please don't hesitate to call if you have any questions at all. DNP note has been reviewed, I agree with a documented findings and plan of care. Patient was seen and examined.
[2018-03-06 17:21] LABS: Iron Saturation 12.95 (15.00-50.00)
--- NOTE | 2018-03-06 18:37 | CT ---
EXAMINATION TYPE: CT abdomen pelvis wo con DATE OF EXAM: 03/06/2018 COMPARISON: NONE HISTORY: Patient poor historian. Abdominal pain and vomiting. CT DLP: 751.1 mGycm Automated exposure control for dose reduction was used. TECHNIQUE: Helical acquisition of images was performed from the lung bases through the pelvis. FINDINGS: There are bilateral pleural effusions. Heart is enlarged. There is patchy atelectasis at the lung bas es. Liver appears normal. Bile ducts are not dilated. Gallbladder is distended. Gallbladder is not dilate d. Gallbladder measures almost 4 cm. Spleen appears normal. There is no pancreatic mass. There is no adrenal mass. The kidneys show no hydronephrosis. There are multiple bilateral renal calc ifications that measure up to almost 1 cm. There is no hydronephrosis. There are exophytic cortical c yst on the lateral left kidney. The largest measures 4 cm. There is small right renal parapelvic cyst . There is small cyst in the upper pole right kidney. There is no retroperitoneal adenopathy. There i s no ascites. Appendix is within normal limits. I see no intestinal wall thickening. There are no dil ated loops. There are multiple diverticula in the sigmoid colon. Prostate is slightly enlarged and me asures 5.4 cm. Bladder distends smoothly. There is a left hip nailing. I see no bony destructive proc ess. There are spondylotic changes in the thoracic and lumbar spine. There is L4-5 L3-4 bony spinal s tenosis. IMPRESSION: CARDIOMEGALY WITH PLEURAL EFFUSIONS AND BASILAR ATELECTASIS. THIS COULD RELATE TO CONGESTIVE HEART FA ILURE. NONOBSTRUCTING RENAL CALCULI. MULTIPLE RENAL CYSTS. ONE EXOPHYTIC CYST ON THE LATERAL LEFT KIDNEY CARLEE WS A SMALL FOCUS OF CALCIFICATION OF DOUBTFUL SIGNIFICANCE. ATHEROSCLEROTIC VASCULAR DISEASE. SIGMOID DIVERTICULOSIS WITHOUT SIGN OF DIVERTICULITIS. SUBCUTANEOUS DENSITY ON THE LEFT ANTERIOR ABDOMEN IS PROBABLY AN INJECTION SITE. MULTILEVEL LUMBAR BONY SPINAL STENOSIS. NO FRACTURE. LEFT SCROTAL HERNIA CONTAINS OMENTAL FAT. ENLARGED PROSTATE.
[2018-03-06] MEDS: FAMOTIDINE 20 MG TAB PO SCH (20:11)
[2018-03-06] MEDS: MAGNESIUM OXIDE 400 MG TAB PO SCH (20:12)
[2018-03-06] MEDS ORDERED: cefTRIAXone IN SWFI 1,000 MG/10 ML SYRINGE IVP SCH (21:00)
[2018-03-06] MEDS: DIPHENOX-ATROP 2.5-0.025 MG 1 EACH TAB PO PRN (21:20)
[2018-03-07] MEDS: SODIUM CHLORIDE 0.9% 1,000 ML IV SCH (06:13)
[2018-03-07] MEDS: AMPICILLIN-SULBACTAM 3 GM in SODIUM CHLORIDE 0.9% 100 ML IVPB SCH ×4 (06:13→23:48)
[2018-03-07 07:20] LABS: Basophils # (A) 0.1 k/uL (0-0.2); Basophils % (A) 0 %; Eosinophils # (A) 0.4 k/uL (0-0.7); Eosinophils % (A) 2 %; HCT 30.8 % (39.0-53.0); HGB 10.5 gm/dL (13.0-17.5); Lymphocytes # (A) 1.9 k/uL (1.0-4.8); Lymphocytes % (A) 11 %; MCH 31.4 pg (25.0-35.0); MCHC 33.9 g/dL (31.0-37.0); MCV 92.7 fL (80.0-100.0); Mean Platelet Volume 7.1; Monocytes # (A) 0.6 k/uL (0-1.0); Monocytes % (A) 4 %; Neutrophils # (A) 14.6 k/uL (1.3-7.7); Neutrophils % (A) 81 %; Platelet Count 198 k/uL (150-450); RBC 3.33 m/uL (4.30-5.90); RDW 14.5 % (11.5-15.5)
[2018-03-07 07:25] LABS: ALT 27 U/L (21-72); AST 19 U/L (17-59); Albumin 2.7 g/dL (3.5-5.0); Alkaline Phosphatase 125 U/L (38-126); Anion Gap 11 mmol/L; Blood Urea Nitrogen 9 mg/dL (9-20); Calcium 7.9 mg/dL (8.4-10.2); Carbon Dioxide 21 mmol/L (22-30); Chloride 111 mmol/L (98-107); Glucose 123 mg/dL (74-99); Potassium 3.7 mmol/L (3.5-5.1); Sodium 143 mmol/L (137-145); Total Bilirubin 0.3 mg/dL (0.2-1.3); Total Protein 5.4 g/dL (6.3-8.2)
[2018-03-07] MEDS: BUDESONIDE 0.5 MG/2 ML NEBU INHALATION SCH ×2 (08:34→20:18)
[2018-03-07] MEDS ORDERED: VANCOMYCIN 1,500 MG in SODIUM CHLORIDE 0.9% 250 ML IVPB SCH (09:00)
[2018-03-07] MEDS: FAMOTIDINE 20 MG TAB PO SCH ×2 (10:03→20:52)
[2018-03-07] MEDS: FERROUS SULFATE 325 MG TAB PO SCH ×2 (10:03→20:52)
[2018-03-07] MEDS: ENOXAPARIN 40 MG/0.4 ML SYRINGE SQ SCH (10:03)
[2018-03-07] MEDS: guaiFENesin 600 MG TABLET.ER PO SCH ×2 (10:04→20:52)
[2018-03-07] MEDS: ASPIRIN 81 MG PO SCH ×2 (10:04→20:52)
[2018-03-07] MEDS: GABAPENTIN 300 MG CAP PO SCH (10:04)
[2018-03-07] MEDS: levETIRAcetam 500 MG TAB PO SCH ×2 (10:04→20:52)
[2018-03-07] MEDS: CITALOPRAM HYDROBROMIDE 20 MG TAB PO SCH (10:04)
[2018-03-07] MEDS: PHENYTOIN SODIUM EXTENDED 100 MG CAP PO SCH ×2 (10:05→20:52)
[2018-03-07] MEDS: METOPROLOL SUCCINATE (ER) 50 MG TAB.ER.24H PO SCH (10:05)
[2018-03-07] MEDS: MULTIVITAMINS, THERA 1 EACH TAB PO SCH (10:05)
[2018-03-07] MEDS: MONTELUKAST 10 MG TAB PO SCH (10:05)
--- NOTE | 2018-03-07 14:14 | P.PN ---
Subjective Progress Note Date: 03/07/18 Bobby Del Valle is an 88-year-old male patient of Dr. Adams who presented to [facility] emergency room with a chief complaint of generalized weakness that started about 24 hours prior to presentation and has been worsening, patient also started having shaking chills at home and he decided to come to emergency room, he was evaluated in the emergency room, and had evidence of sepsis, patient had tachycardia with a heart rate of 125, tachypnea with a respiratory rate of 30, fever with a temperature of 101.5, and elevated lactic acid at 5, no clear source of infection was established, patient had chest x-ray which was described as normal, and urine analysis that did not show any significant infection, patient denies any skin ulcerations or infections, he was started on IV antibiotics and IV fluid and was admitted to telemetry floor. Blood culture and urine culture were done, this morning 2 blood culture were positive for gram-positive cocci in pairs and in chains, IV vancomycin was added to her regimen and infectious disease consultation was requested. Also during the initial evaluation troponin level was slightly elevated, cardiology consultation was requested. 03/06/2018 patient has had an increase in his white count to 30.8. Has been afebrile through the night and this morning. Discussed with infectious disease. Unasyn was added and they've ordered a computed tomography scan of the abdomen and pelvis. Patient also is on vancomycin. Patient reports that he is still having some cough and prior to admission also had some sinus congestion and now he does admit to having postnasal drip. Mucinex has been ordered. He denies any chest pain or shortness of breath. Per nursing patient had been slightly short of breath with earlier this morning but no significant change in vitals. Patient denies any diarrhea. Denies any burning with urination. 03/07/2018 patient's white count has dropped from 30.8 down to 18. Hemoglobin is 10.5 and iron 25. Patient be started on iron supplement. Stool for C. diff was negative. He's been afebrile. He remains on Unasyn and vancomycin. Discussed with Dr. Euceda he is recommending a MICHAEL to rule out endocarditis. Also recommending PICC line placement if repeat blood cultures are negative. Patient has no new complaints. He reports that he is starting to feel better. He wants to be discharged home. Patient denies any chest pain or shortness of breath. Denies any nausea or vomiting. Denies any bowel movement changes or urinary symptoms. He did receive Lomotil yesterday that has stopped the loose stools. Cough is improved. Objective - Vital Signs Vital signs: Vital Signs Temp 97.5 F L 03/07/18 09:30 Pulse 76 03/07/18 11:20 Resp 18 03/07/18 11:20 BP 166/86 03/07/18 11:20 Pulse Ox 94 L 03/07/18 11:20 Intake & Output 03/06/18 03/07/18 03/07/18 18:59 06:59 18:59 Intake Total 1380 480 Output Total 800 1625 275 Balance 580 -1625 205 Weight 94.8 kg Intake: Intake, IV Titration 900 Amount Ampicillin-Sulbactam 3 gm 100 In Sodium Chloride 0.9% 100 ml @ 100 mls/hr IVPB Q6HR SARAH Rx#:[id number] Sodium Chloride 0.9% 1, 800 000 ml @ 100 mls/hr IV . Q10H SARAH Rx#:[id number] Oral 480 480 Output: Urine 800 1625 275 Other: Voiding Method Urinal Urinal # Voids 1 # Bowel Movements 1 - Exam Head normocephalic Neck supple Lungs no wheezing or crackles Heart regular rate and rhythm S1-S2, no rub or gallop Abdomen is soft nontender nondistended positive bowel sounds no hepatosplenomegaly Extremities no edema Neuro alert and orientated to 3 - Labs CBC & Chem 7: 03/07/18 06:24 03/07/18 06:24 Labs: Abnormal Lab Results - Last 24 Hours (Table) 03/06/18 03/07/18 03/07/18 Range/Units 08:41 06:24 06:24 WBC 18.0 H (3.8-10.6) k/uL RBC 3.33 L (4.30-5.90) m/uL Hgb 10.5 L (13.0-17.5) gm/dL Hct 30.8 L (39.0-53.0) % Neutrophils # 14.6 H (1.3-7.7) k/uL Chloride 111 H (98-107) mmol/L Carbon Dioxide 21 L (22-30) mmol/L Glucose 123 H (74-99) mg/dL Calcium 7.9 L (8.4-10.2) mg/dL Iron 25 L (65-175) ug/dL TIBC 193 L (228-460) ug/dL Iron Saturation 12.95 L (15.00-50.00) Ferritin 422.2 H (22.0-322.0) ng/mL Total Protein 5.4 L (6.3-8.2) g/dL Albumin 2.7 L (3.5-5.0) g/dL Microbiology - Last 24 Hours (Table) 03/05/18 01:40 Blood Culture Gram Stain - Final Blood Blood Culture - Preliminary Streptococcus bovis 03/04/18 00:53 Blood Culture Gram Stain - Final Blood Blood Culture - Preliminary Streptococcus bovis 03/06/18 11:24 Gram Stain - Preliminary Sputum 03/05/18 01:27 Urine Culture - Final Urine,Voided Assessment and Plan Assessment: #1 sepsis, initial source of infection is not entirely clear, chest x-ray does not reveal any evidence of pneumonia, and urine analysis did not reveal any significant urinary tract infection, blood culture is positive for gram- positive cocci in pairs and in chains, currently patient was started on IV Rocephin and IV Zithromax in the emergency room for presumed bronchitis, IV vancomycin was added when blood culture results were positive. Continue with current management at this time, initial lactic acid at 5 has decreased to 2.3 White count is trending down from 30.8-18. Computed tomography scan of the abdomen and pelvis showed no significant acute abnormality. Patient remains on Unasyn and vancomycin. He is afebrile. Stool for C. diff is negative. Infectious disease is concerned about possible endocarditis. MICHAEL has been ordered. They are recommending PICC line placement if repeat blood cultures are negative. Sepsis disease ordered a repeat blood culture #2 elevated troponin level : Patient seen by cardiology. No evidence of acute coronary syndrome. Echo shows an EF of 50-55% with moderate pulmonary hypertension and moderate tricuspid regurgitation #3 underlying history of seizure disorder maintained on Dilantin and Keppra continue #4 underlying history of hypertension : Blood pressures have been elevated. Hep -Lock IV fluids. Continue with metoprolol for now. If blood pressure remains elevated may add JAMAR inhibitor #5 underlying history of cardiac arrhythmia was history of pacemaker placement #6 underlying history of asthma maintained on Pulmicort and Singulair continue #7 underlying history of depression maintained on Celebrex continue #8 anemia possibly related to IV fluids and sepsis. No evidence of active bleeding. Check iron studies. GI prophylaxis Pepcid and DVT prophylaxis Lovenox I performed an examination of the patient and discussed their management with the physician Agricultural Commodities Inspector. I have reviewed the Physician Agricultural Commodities Inspector's notes and agree with the documented findings and plan of care
[2018-03-07] MEDS: MAGNESIUM OXIDE 400 MG TAB PO SCH (20:52)
--- NOTE | 2018-03-07 22:11 | PN ---
PROGRESS NOTE DATE OF SERVICE: 03/07/2018 REASON FOR FOLLOWUP: Staphylococcus bovis bacteremia. INTERVAL HISTORY: The patient is afebrile. He has been breathing comfortably. Denies having any chest pain or shortness of breath. Occasional cough. No abdominal pain. No nausea, vomiting or diarrhea. EXAMINATION: Blood pressure 151/82 with a pulse of 78, temperature of 97.9. He is 97% on room air. General description is an elderly male lying in bed in no distress. RESPIRATORY SYSTEM: Unlabored breathing, decreased breath sounds. No wheeze. HEART: S1, S2. Regular rate and rhythm murmur. ABDOMEN: Soft, no tenderness. EXTREMITIES: No edema of the feet. LABS: Hemoglobin is 10.5, white count 18,000 with a BUN of 9, creatinine 0.68. Blood cultures with Streptococcus bovis and sputum Staph aureus . DIAGNOSTIC IMPRESSION AND PLAN: Patient was admitted to the hospital with sepsis. Source is likely Streptococcus bovis bacteremia, which is usually of gut origin. A CT of abdomen and pelvis was negative. The patient mentioned he did not have any colonoscopy. He will need a colonoscopy in the outpatient setting once infection resolved. Streptococcus bovis can be associated with endocarditis. An echocardiogram was negative. I discussed the case with Cardiology who will be doing a MICHAEL hopefully tomorrow. Blood culture has been repeated to document bacteremia before placing a PICC line for outpatient IV antibiotic therapy. Continue Unasyn. Continue supportive care. MMODL / IJN: [id number] /
[2018-03-08] MEDS: AMPICILLIN-SULBACTAM 3 GM in SODIUM CHLORIDE 0.9% 100 ML IVPB SCH ×3 (05:18→16:47)
[2018-03-08] MEDS ORDERED: ACETAMINOPHEN TAB 500 MG TAB PO PRN (05:27)
[2018-03-08 06:34] LABS: Basophils # (A) 0.1 k/uL (0-0.2); Basophils % (A) 1 %; Eosinophils # (A) 0.4 k/uL (0-0.7); Eosinophils % (A) 3 %; HCT 36.1 % (39.0-53.0); HGB 12.3 gm/dL (13.0-17.5); Lymphocytes # (A) 2.2 k/uL (1.0-4.8); Lymphocytes % (A) 15 %; MCH 31.7 pg (25.0-35.0); MCV 93.3 fL (80.0-100.0); Mean Platelet Volume 6.9; Monocytes # (A) 0.5 k/uL (0-1.0); Monocytes % (A) 4 %; Neutrophils # (A) 11.2 k/uL (1.3-7.7); Neutrophils % (A) 76 %; Platelet Count 229 k/uL (150-450); RBC 3.87 m/uL (4.30-5.90); RDW 14.6 % (11.5-15.5); WBC 14.7 k/uL (3.8-10.6)
[2018-03-08 06:48] LABS: ALT 23 U/L (21-72); AST 28 U/L (17-59); Albumin 3.3 g/dL (3.5-5.0); Alkaline Phosphatase 148 U/L (38-126); Anion Gap 13 mmol/L; Blood Urea Nitrogen 10 mg/dL (9-20); Calcium 8.7 mg/dL (8.4-10.2); Carbon Dioxide 23 mmol/L (22-30); Chloride 107 mmol/L (98-107); Glucose 134 mg/dL (74-99); Potassium 3.9 mmol/L (3.5-5.1); Sodium 143 mmol/L (137-145); Total Bilirubin 0.4 mg/dL (0.2-1.3); Total Protein 6.4 g/dL (6.3-8.2)
[2018-03-08] MEDS: BUDESONIDE 0.5 MG/2 ML NEBU INHALATION SCH ×2 (07:11→20:58)
[2018-03-08] MEDS ORDERED: VANCOMYCIN TROUGH DUE 1 EACH MISC MISCELLANE ONE (08:00)
[2018-03-08] MEDS: ASPIRIN 81 MG PO SCH ×2 (08:18→20:34)
[2018-03-08] MEDS: ENOXAPARIN 40 MG/0.4 ML SYRINGE SQ SCH (08:18)
[2018-03-08] MEDS: FAMOTIDINE 20 MG TAB PO SCH ×2 (08:18→20:34)
[2018-03-08] MEDS: METOPROLOL SUCCINATE (ER) 50 MG TAB.ER.24H PO SCH (08:19)
[2018-03-08] MEDS: levETIRAcetam 500 MG TAB PO SCH ×2 (08:19→20:34)
[2018-03-08] MEDS: FERROUS SULFATE 325 MG TAB PO SCH ×2 (08:19→20:34)
[2018-03-08] MEDS: MONTELUKAST 10 MG TAB PO SCH (08:19)
[2018-03-08] MEDS: MULTIVITAMINS, THERA 1 EACH TAB PO SCH (08:19)
[2018-03-08] MEDS: CITALOPRAM HYDROBROMIDE 20 MG TAB PO SCH (08:20)
[2018-03-08] MEDS: PHENYTOIN SODIUM EXTENDED 100 MG CAP PO SCH ×2 (08:20→20:35)
[2018-03-08] MEDS: guaiFENesin 600 MG TABLET.ER PO SCH ×2 (08:20→20:34)
[2018-03-08] MEDS: GABAPENTIN 300 MG CAP PO SCH (08:20)
[2018-03-08] MEDS: LISINOPRIL 5 MG TAB PO SCH (08:23)
[2018-03-08] MEDS ORDERED: fentaNYL (PF) 50 MCG/ML 2 ML AMP ONE (11:42)
[2018-03-08] MEDS ORDERED: MIDAZOLAM 2 MG/2 ML VIAL ONE (11:42)
[2018-03-08] MEDS ORDERED: IV FLUID CONTINUATION 300 ML IV ONE (11:47)
[2018-03-08] MEDS ORDERED: BENZOCAINE SPRAY 1 CAN MUCOUS MEM ONE (11:57)
[2018-03-08] MEDS ORDERED: MIDAZOLAM 2 MG/2 ML VIAL IVP ONE (12:06)
[2018-03-08] MEDS ORDERED: fentaNYL (PF) 50 MCG/ML 2 ML AMP IVP ONE (12:06)
--- NOTE | 2018-03-08 12:46 | ECHOT ---
TRANSESOPHAGEAL ECHOCARDIOGRAM This transesophageal echocardiogram was done to rule out any evidence of vegetation. This patient has come with septicemia, blood cultures are positive for strep . In view of that, the patient was recommended to have a transesophageal echocardiogram to rule out any evidence of endocarditis. PROCEDURE: Patient was given intravenous sedation with Versed and fentanyl and transesophageal echocardiogram was performed without any complications. Left ventricular chamber is normal in size with atypical septal motion and normal left ventricular systolic function. Mitral valve morphology is normal. The aortic valve is mildly thickened. There is no definite evidence of any vegetations. There is no evidence of vegetations on the tricuspid valve. Mild degree of mitral regurgitation is noted. Interatrial septum is intact. There is no evidence of any PFO. There is no evidence of thrombus in the left atrial appendage. FINAL IMPRESSION: 1. This study does not show any evidence of vegetation on aortic mitral and tricuspid valve. 2. Left ventricular systolic function is mildly impaired with atypical septal motion with ejection fraction in the range of 45%-50%. 3. There is evidence of mild degree of mitral regurgitation. 4. Interatrial septum is intact. 5. There is no evidence of thrombus in left atrial appendage. MMODL / IJN: [id number] /
--- NOTE | 2018-03-08 13:16 | PN ---
PROGRESS NOTE DATE OF SERVICE: 03/08/2018. REASON FOR FOLLOWUP VISIT: Streptococcal bacteremia. INTERVAL HISTORY: The patient is afebrile. Has been breathing comfortably. He did have a MICHAEL done this morning that did not show any evidence of endocarditis. The patient denies having any chest pain. Overall breathing has improved. No nausea, vomiting. No diarrhea. EXAMINATION: Blood pressure 123/75 with a pulse of 79, temperature 97.6. He is 95% on room air. General description is an elderly male lying in bed in no distress. RESPIRATORY SYSTEM: Unlabored breathing. Clear to auscultation anteriorly. HEART: S1, S2. Regular rate and rhythm. ABDOMEN: Soft, no tenderness. EXTREMITIES: No edema of the feet. LABS: Hemoglobin 12.2, white count 14.7, BUN of 10, creatinine 0.72. Blood culture repeat ordered yesterday has been negative so far. DIAGNOSTIC IMPRESSION AND PLAN: Patient is status post bacteremia, which is a sensitive pathogen with no clear focus. CT abdomen and pelvis did not show any evidence of any inflammation. MICHAEL is negative for endocarditis. Will wait for the blood culture that was done yesterday. If it remains to be negative the patient can get either midline or PICC line for 2 weeks of IV Rocephin 2 g daily with close outpatient followup. MMODL / IJN: [id number] /
--- NOTE | 2018-03-08 17:02 | P.PN ---
Subjective Progress Note Date: 03/08/18 Bobby Del Valle is an 88-year-old male patient of Dr. Adams who presented to [facility] emergency room with a chief complaint of generalized weakness that started about 24 hours prior to presentation and has been worsening, patient also started having shaking chills at home and he decided to come to emergency room, he was evaluated in the emergency room, and had evidence of sepsis, patient had tachycardia with a heart rate of 125, tachypnea with a respiratory rate of 30, fever with a temperature of 101.5, and elevated lactic acid at 5, no clear source of infection was established, patient had chest x-ray which was described as normal, and urine analysis that did not show any significant infection, patient denies any skin ulcerations or infections, he was started on IV antibiotics and IV fluid and was admitted to telemetry floor. Blood culture and urine culture were done, this morning 2 blood culture were positive for gram-positive cocci in pairs and in chains, IV vancomycin was added to her regimen and infectious disease consultation was requested. Also during the initial evaluation troponin level was slightly elevated, cardiology consultation was requested. 03/06/2018 patient has had an increase in his white count to 30.8. Has been afebrile through the night and this morning. Discussed with infectious disease. Unasyn was added and they've ordered a computed tomography scan of the abdomen and pelvis. Patient also is on vancomycin. Patient reports that he is still having some cough and prior to admission also had some sinus congestion and now he does admit to having postnasal drip. Mucinex has been ordered. He denies any chest pain or shortness of breath. Per nursing patient had been slightly short of breath with earlier this morning but no significant change in vitals. Patient denies any diarrhea. Denies any burning with urination. 03/07/2018 patient's white count has dropped from 30.8 down to 18. Hemoglobin is 10.5 and iron 25. Patient be started on iron supplement. Stool for C. diff was negative. He's been afebrile. He remains on Unasyn and vancomycin. Discussed with Dr. Euceda he is recommending a MICHAEL to rule out endocarditis. Also recommending PICC line placement if repeat blood cultures are negative. Patient has no new complaints. He reports that he is starting to feel better. He wants to be discharged home. Patient denies any chest pain or shortness of breath. Denies any nausea or vomiting. Denies any bowel movement changes or urinary symptoms. He did receive Lomotil yesterday that has stopped the loose stools. Cough is improved. On 03/08/2018 patient is alert and oriented 3 in no apparent distress, he underwent MICHAEL today results are still pending white blood count is declining continue with current antibiotic at this time. Clinically patient is feeling well, there is no fever or chills no headache or dizziness, no chest pain or shortness of breath no cough no nausea or vomiting no abdominal pain no diarrhea and no urinary symptoms. Objective - Vital Signs Vital signs: Vital Signs Temp 97.6 F 03/08/18 12:48 Pulse 79 03/08/18 12:48 Resp 18 03/08/18 12:48 BP 123/75 03/08/18 12:48 Pulse Ox 95 03/08/18 12:48 Intake & Output 03/07/18 03/08/18 03/08/18 18:59 06:59 18:59 Intake Total 720 290 Output Total 850 2300 475 Balance -130 -2300 -185 Weight 90.4 kg Intake: IV 50 Oral 720 240 Output: Urine 850 2300 475 Other: Voiding Method Urinal Urinal Urinal - Exam Head normocephalic and atraumatic Neck supple no JVD no goiter Lungs no wheezing or crackles Heart regular rate and rhythm S1-S2, no rub or gallop Abdomen is soft nontender nondistended positive bowel sounds no hepatosplenomegaly Extremities no edema no cyanosis or clubbing Neuro alert and orientated to 3 - Labs CBC & Chem 7: 03/08/18 05:51 03/08/18 05:51 Labs: Abnormal Lab Results - Last 24 Hours (Table) 03/08/18 03/08/18 Range/Units 05:51 05:51 WBC 14.7 H (3.8-10.6) k/uL RBC 3.87 L (4.30-5.90) m/uL Hgb 12.3 L (13.0-17.5) gm/dL Hct 36.1 L (39.0-53.0) % Neutrophils # 11.2 H (1.3-7.7) k/uL Glucose 134 H (74-99) mg/dL Alkaline Phosphatase 148 H (38-126) U/L Albumin 3.3 L (3.5-5.0) g/dL Microbiology - Last 24 Hours (Table) 03/07/18 10:58 Blood Culture - Preliminary Blood No Growth after 24 hours 03/04/18 00:53 Blood Culture Gram Stain - Final Blood Blood Culture - Final Streptococcus bovis 03/05/18 01:40 Blood Culture Gram Stain - Final Blood Blood Culture - Final Streptococcus bovis 03/06/18 11:24 Gram Stain - Preliminary Sputum Sputum Culture - Preliminary Presumptive Staph aureus Gemini albicans Assessment and Plan Plan: #1 sepsis, initial source of infection is not entirely clear, chest x-ray does not reveal any evidence of pneumonia, and urine analysis did not reveal any significant urinary tract infection, blood culture is positive for gram- positive cocci in pairs and in chains, currently patient was started on IV Rocephin and IV Zithromax in the emergency room for presumed bronchitis, IV vancomycin was added when blood culture results were positive. Continue with current management at this time, initial lactic acid at 5, patient is maintained on IV fluid, repeat d-dimer at 2.3 #2 elevated troponin level cardiology consultation is requested. #3 underlying history of seizure disorder maintained on Dilantin continue #4 underlying history of hypertension maintained on metoprolol #5 underlying history of cardiac arrhythmia was history of pacemaker placement #6 underlying history of asthma maintained on Pulmicort and Singulair continue #7 underlying history of depression maintained on Celebrex continue At this time we are awaiting MICHAEL results and further recommendation from infectious disease Medication and labs were reviewed patient was seen and examined Continue was current management, IV vancomycin was added Will recheck labs in a.m. Will follow closely
[2018-03-08] MEDS: MAGNESIUM OXIDE 400 MG TAB PO SCH (20:34)
[2018-03-09] MEDS: AMPICILLIN-SULBACTAM 3 GM in SODIUM CHLORIDE 0.9% 100 ML IVPB SCH ×3 (00:34→12:00)
[2018-03-09 06:18] LABS: ALT 44 U/L (21-72); AST 50 U/L (17-59); Albumin 3.1 g/dL (3.5-5.0); Alkaline Phosphatase 136 U/L (38-126); Anion Gap 11 mmol/L; Blood Urea Nitrogen 15 mg/dL (9-20); Calcium 8.3 mg/dL (8.4-10.2); Carbon Dioxide 24 mmol/L (22-30); Chloride 108 mmol/L (98-107); Glucose 102 mg/dL (74-99); Potassium 3.8 mmol/L (3.5-5.1); Sodium 143 mmol/L (137-145); Total Bilirubin 0.4 mg/dL (0.2-1.3)
[2018-03-09 06:22] LABS: Basophils # (A) 0.1 k/uL (0-0.2); Basophils % (A) 1 %; Eosinophils # (A) 0.6 k/uL (0-0.7); Eosinophils % (A) 5 %; HCT 35.5 % (39.0-53.0); HGB 12.2 gm/dL (13.0-17.5); Lymphocytes # (A) 2.3 k/uL (1.0-4.8); Lymphocytes % (A) 22 %; MCH 31.8 pg (25.0-35.0); MCHC 34.5 g/dL (31.0-37.0); MCV 92.2 fL (80.0-100.0); Mean Platelet Volume 6.8; Monocytes # (A) 0.6 k/uL (0-1.0); Monocytes % (A) 5 %; Neutrophils # (A) 6.9 k/uL (1.3-7.7); Neutrophils % (A) 65 %; Platelet Count 253 k/uL (150-450); RBC 3.85 m/uL (4.30-5.90); RDW 14.4 % (11.5-15.5); WBC 10.7 k/uL (3.8-10.6)
[2018-03-09] MEDS: PHENYTOIN SODIUM EXTENDED 100 MG CAP PO SCH ×2 (08:21→20:14)
[2018-03-09] MEDS: METOPROLOL SUCCINATE (ER) 50 MG TAB.ER.24H PO SCH (08:21)
[2018-03-09] MEDS: MONTELUKAST 10 MG TAB PO SCH (08:21)
[2018-03-09] MEDS: MULTIVITAMINS, THERA 1 EACH TAB PO SCH (08:22)
[2018-03-09] MEDS: BUDESONIDE 0.5 MG/2 ML NEBU INHALATION SCH ×2 (08:46→20:10)
[2018-03-09] MEDS: ENOXAPARIN 40 MG/0.4 ML SYRINGE SQ SCH (11:35)
[2018-03-09] MEDS: ASPIRIN 81 MG PO SCH ×2 (11:35→20:14)
[2018-03-09] MEDS: guaiFENesin 600 MG TABLET.ER PO SCH ×2 (11:35→20:14)
[2018-03-09] MEDS: GABAPENTIN 300 MG CAP PO SCH (11:36)
[2018-03-09] MEDS: FERROUS SULFATE 325 MG TAB PO SCH ×2 (11:36→20:14)
[2018-03-09] MEDS: FAMOTIDINE 20 MG TAB PO SCH ×2 (11:36→20:14)
[2018-03-09] MEDS: CITALOPRAM HYDROBROMIDE 20 MG TAB PO SCH (11:36)
[2018-03-09] MEDS: levETIRAcetam 500 MG TAB PO SCH ×2 (11:37→20:14)
[2018-03-09] MEDS: LISINOPRIL 5 MG TAB PO SCH (11:37)
[2018-03-09] MEDS ORDERED: cefTRIAXone IN SWFI 2,000 MG/20 ML SYRINGE IVP STA (12:57)
[2018-03-09] MEDS: DIPHENOX-ATROP 2.5-0.025 MG 1 EACH TAB PO PRN (14:01)
--- NOTE | 2018-03-09 15:02 | PN ---
PROGRESS NOTE DATE OF SERVICE: 03/09/2018. REASON FOR FOLLOWUP: 1. Streptococcus post bacteremia. 2. Positive sputum culture with MRSA. INTERVAL HISTORY: The patient is afebrile. He has been breathing comfortably. Denies significant chest pain. No abdominal pain. No nausea, vomiting or diarrhea. EXAMINATION: Blood pressure 145/86, pulse of 77, temperature 98.8. He is 94% on room air. General description is an elderly male lying in bed in no distress. RESPIRATORY SYSTEM: Unlabored breathing. Clear to auscultation anteriorly. HEART: S1, S2. Regular rate and rhythm. ABDOMEN: Soft, no tenderness. LABS: Hemoglobin 12.2, white count 10.7, BUN of 15, creatinine 0.80. Blood culture repeat 03/07 has been negative. Sputum showing a MRSA and Gemini albicans. DIAGNOSTIC IMPRESSION AND PLAN: 1. Patient with Streptococcus bovis bacteremia, source is likely abdominal. The patient did have a MICHAEL that was negative for endocarditis. He will get a mid line with antibiotic adjusted to Rocephin 2 g daily to finish a 2-week course of therapy from negative blood cultures. 2. Patient does have a sputum positive for MRSA, more likely colonizer is also showing some Gemini. His chest x-ray was negative on admission and the patient has no fevers resolved without getting treatment for the MRSA. This was explained in detail to the patient's RN as well as nurse practitioner for the admitting team. CONCHIS / ENMANUEL: [id number] /
--- NOTE | 2018-03-09 15:12 | P.DS ---
Providers Date of admission: 03/05/18 03:38 Expected date of discharge: 03/09/18 Attending physician: Adriana Mcclellan Consults: 03/05/18 12:44 Consult Physician Routine Consulting Provider: Richard Euceda Consult Reason/Comments: sepsis Do you want consulting provider notified?: Yes Primary care physician: Julio Adams [place] [facility] Course: Discharge diagnosis #1 sepsis with bacteremia: initial source of infection is not entirely clear, chest x-ray does not reveal any evidence of pneumonia, and urine analysis did not reveal any significant urinary tract infection, currently patient was started on IV Rocephin and IV Zithromax in the emergency room for presumed bronchitis, IV vancomycin was added when blood culture results were positive. Continue with current management at this time, initial lactic acid at 5 has decreased to 2.3 White count is trending down from 30.8-18. Computed tomography scan of the abdomen and pelvis showed no significant acute abnormality. Patient remains on Unasyn and vancomycin. He is afebrile. Stool for C. diff is negative. Infectious disease is concerned about possible endocarditis. Patient had MICHAEL completed no evidence of endocarditis. 2 blood cultures showing Streptococcus bovis. Repeat blood culture negative. Infectious diseases refer the recommending Rocephin 2 g IV daily for 2 weeks the midline or PICC line at the wound care center daily. Sputum culture also grew MRSA and Gemini albicans. Discussed with infectious disease. No need for treatment at this time. Patient showing improvement with current antibiotics Infectious disease is recommending colonoscopy in the outpatient setting #2 elevated troponin level : Patient seen by cardiology. No evidence of acute coronary syndrome. Echo shows an EF of 50-55% with moderate pulmonary hypertension and moderate tricuspid regurgitation #3 underlying history of seizure disorder maintained on Dilantin and Keppra continue #4 underlying history of hypertension : Blood pressures have been elevated. Hep -Lock IV fluids. Continue with metoprolol for now. If blood pressure remains elevated may add JAMAR inhibitor #5 underlying history of cardiac arrhythmia was history of pacemaker placement #6 underlying history of mild intermittent asthma with no evidence of exacerbation. maintained on Pulmicort and Singulair continue #7 underlying history of depression maintained on Celebrex continue #8 anemia likely related to iron deficiency anemia as well as sepsis and dilutional from IV fluids. Patient started on iron supplement and hemoglobin normalized up to 12.2 Hospital course Bobby Del Valle is an 88-year-old male patient of Dr. Adams who presented to [facility] emergency room with a chief complaint of generalized weakness that started about 24 hours prior to presentation and has been worsening, patient also started having shaking chills at home and he decided to come to emergency room, he was evaluated in the emergency room, and had evidence of sepsis, patient had tachycardia with a heart rate of 125, tachypnea with a respiratory rate of 30, fever with a temperature of 101.5, and elevated lactic acid at 5, no clear source of infection was established, patient had chest x-ray which was described as normal, and urine analysis that did not show any significant infection, patient denies any skin ulcerations or infections, he was started on IV antibiotics and IV fluid and was admitted to telemetry floor. Blood culture and urine culture were done, this morning 2 blood culture were positive for gram-positive cocci in pairs and in chains, IV vancomycin was added to her regimen and infectious disease consultation was requested. Also during the initial evaluation troponin level was slightly elevated, cardiology consultation was requested. 03/06/2018 patient has had an increase in his white count to 30.8. Has been afebrile through the night and this morning. Discussed with infectious disease. Unasyn was added and they've ordered a computed tomography scan of the abdomen and pelvis. Patient also is on vancomycin. Patient reports that he is still having some cough and prior to admission also had some sinus congestion and now he does admit to having postnasal drip. Mucinex has been ordered. He denies any chest pain or shortness of breath. Per nursing patient had been slightly short of breath with earlier this morning but no significant change in vitals. Patient denies any diarrhea. Denies any burning with urination. 03/07/2018 patient's white count has dropped from 30.8 down to 18. Hemoglobin is 10.5 and iron 25. Patient be started on iron supplement. Stool for C. diff was negative. He's been afebrile. He remains on Unasyn and vancomycin. Discussed with Dr. Euceda he is recommending a MICHAEL to rule out endocarditis. Also recommending PICC line placement if repeat blood cultures are negative. Patient has no new complaints. He reports that he is starting to feel better. He wants to be discharged home. Patient denies any chest pain or shortness of breath. Denies any nausea or vomiting. Denies any bowel movement changes or urinary symptoms. He did receive Lomotil yesterday that has stopped the loose stools. Cough is improved. Patient's symptoms are showing improvement. White count has almost normalized at 10.7. Repeat blood cultures are negative. Exact source for his bacteremia is still unclear. Patient had extensive workup completed. He is followed closely by infectious disease. The recommending Rocephin 2 g IV daily for 2 weeks via midline or [facility] at [facility]. Patient is feeling better and is eager for discharge home. Patient is medically stable for discharge. Nursing staff has been instructed to not discharge patient until either midline or PICC line has placed and outpatient antibiotics is arranged I performed an examination of the patient and discussed their management with the physician Mmi Teacher. I have reviewed the Physician Mmi Teacher's notes and agree with the documented findings and plan of care Patient Condition at Discharge: Stable Plan - Discharge Summary Discharge Rx Participant: No New Discharge Prescriptions: New cefTRIAXone [Rocephin] 2,000 mg IVP Q24HR #14 dose Ferrous Sulfate [Iron (65 MG Elemental)] 325 mg PO BID #60 tab Lisinopril [Zestril] 5 mg PO DAILY #30 tab Continue Phenytoin Sodium Extended [Dilantin] 300 mg PO BID Montelukast [Singulair] 10 mg PO DAILY Aspirin 81 mg PO BID Omeprazole [PriLOSEC] 20 mg PO BID Gabapentin [Neurontin] 300 mg PO DAILY Multivitamin [Men's Multi-Vitamin] 1 tab PO DAILY Budesonide [Pulmicort] 0 mg INHALATION BID Glucosamine Sulfate 1,500 mg PO HS Metoprolol Succinate (ER) [Toprol XL] 50 mg PO DAILY Citalopram Hydrobromide [Citalopram HBr] 20 mg PO BID diphenhydrAMINE [Benadryl] 25 mg PO DAILY PRN PRN Reason: Allergy Symptoms Loperamide HCl [Imodium A-D] 2 mg PO DAILY PRN PRN Reason: Loose Stool Anacin 500 mg PO DAILY PRN PRN Reason: Pain Tart Prabhakar 1 tab PO HS Magnesium Oxide [Mag-Ox] 250 mg PO HS levETIRAcetam [Keppra] 500 mg PO Q12HR Ascorbic Acid [Vitamin C] 500 mg PO HS Discharge Medication List Aspirin 81 mg PO BID 03/28/14 [History] Gabapentin [Neurontin] 300 mg PO DAILY 03/28/14 [History] Montelukast [Singulair] 10 mg PO DAILY 03/28/14 [History] Omeprazole [PriLOSEC] 20 mg PO BID 03/28/14 [History] Phenytoin Sodium Extended [Dilantin] 300 mg PO BID 03/28/14 [History] Budesonide [Pulmicort] 0 mg INHALATION BID 03/29/14 [History] Multivitamin [Men's Multi-Vitamin] 1 tab PO DAILY 03/29/14 [History] Anacin 500 mg PO DAILY PRN 03/05/18 [History] Ascorbic Acid [Vitamin C] 500 mg PO HS 03/05/18 [History] Citalopram Hydrobromide [Citalopram HBr] 20 mg PO BID 03/05/18 [History] Glucosamine Sulfate 1,500 mg PO HS 03/05/18 [History] Loperamide HCl [Imodium A-D] 2 mg PO DAILY PRN 03/05/18 [History] Magnesium Oxide [Mag-Ox] 250 mg PO HS 03/05/18 [History] Metoprolol Succinate (ER) [Toprol XL] 50 mg PO DAILY 03/05/18 [History] Tart Prabhakar 1 tab PO HS 03/05/18 [History] diphenhydrAMINE [Benadryl] 25 mg PO DAILY PRN 03/05/18 [History] levETIRAcetam [Keppra] 500 mg PO Q12HR 03/05/18 [History] Ferrous Sulfate [Iron (65 MG Elemental)] 325 mg PO BID #60 tab 03/09/18 [Rx] Lisinopril [Zestril] 5 mg PO DAILY #30 tab 03/09/18 [Rx] cefTRIAXone [Rocephin] 2,000 mg IVP Q24HR #14 dose 03/09/18 [Rx] Follow up Appointment(s)/Referral(s): Richard Euceda MD [STAFF PHYSICIAN] - 1 Week Adriana Mcclellan MD [STAFF PHYSICIAN] - 1 Week Activity/Diet/Wound Care/Special Instructions: Diet: cardiac Activity: as tolerated IV antibiotics at wound care center daily Discharge Disposition: HOME WITH HOME HEALTH SERVICES
[2018-03-09] MEDS: MAGNESIUM OXIDE 400 MG TAB PO SCH (20:15)
[2018-03-10 07:49] VITALS: BP 132/70; PULSE 71; RESP 16; TEMP 97.5
[2018-03-10] MEDS: FERROUS SULFATE 325 MG TAB PO SCH (08:03)
[2018-03-10] MEDS: guaiFENesin 600 MG TABLET.ER PO SCH (08:03)
[2018-03-10] MEDS: PHENYTOIN SODIUM EXTENDED 100 MG CAP PO SCH (08:03)
[2018-03-10] MEDS: MULTIVITAMINS, THERA 1 EACH TAB PO SCH (08:04)
[2018-03-10] MEDS: MONTELUKAST 10 MG TAB PO SCH (08:04)
[2018-03-10] MEDS: CITALOPRAM HYDROBROMIDE 20 MG TAB PO SCH (08:04)
[2018-03-10] MEDS: ENOXAPARIN 40 MG/0.4 ML SYRINGE SQ SCH (08:04)
[2018-03-10] MEDS: ASPIRIN 81 MG PO SCH (08:04)
[2018-03-10] MEDS: FAMOTIDINE 20 MG TAB PO SCH (08:04)
[2018-03-10] MEDS: LISINOPRIL 5 MG TAB PO SCH (08:04)
[2018-03-10] MEDS: levETIRAcetam 500 MG TAB PO SCH (08:04)
[2018-03-10] MEDS: GABAPENTIN 300 MG CAP PO SCH (08:04)
[2018-03-10] MEDS: METOPROLOL SUCCINATE (ER) 50 MG TAB.ER.24H PO SCH (08:04)
[2018-03-10 08:11] LABS: Basophils # (A) 0.1 k/uL (0-0.2); Basophils % (A) 1 %; Eosinophils # (A) 0.6 k/uL (0-0.7); Eosinophils % (A) 6 %; HCT 36.3 % (39.0-53.0); HGB 12.3 gm/dL (13.0-17.5); Lymphocytes # (A) 2.2 k/uL (1.0-4.8); Lymphocytes % (A) 22 %; MCH 31.7 pg (25.0-35.0); MCV 93.4 fL (80.0-100.0); Monocytes # (A) 0.4 k/uL (0-1.0); Monocytes % (A) 4 %; Neutrophils # (A) 6.4 k/uL (1.3-7.7); Neutrophils % (A) 64 %; Platelet Count 256 k/uL (150-450); RBC 3.89 m/uL (4.30-5.90); RDW 14.7 % (11.5-15.5)
[2018-03-10 08:40] LABS: ALT 47 U/L (21-72); AST 42 U/L (17-59); Albumin 3.5 g/dL (3.5-5.0); Alkaline Phosphatase 134 U/L (38-126); Anion Gap 13 mmol/L; Blood Urea Nitrogen 14 mg/dL (9-20); Calcium 8.5 mg/dL (8.4-10.2); Carbon Dioxide 21 mmol/L (22-30); Chloride 109 mmol/L (98-107); Glucose 118 mg/dL (74-99); Potassium 3.9 mmol/L (3.5-5.1); Sodium 143 mmol/L (137-145); Total Bilirubin 0.3 mg/dL (0.2-1.3); Total Protein 6.6 g/dL (6.3-8.2)
[2018-03-10] MEDS: BUDESONIDE 0.5 MG/2 ML NEBU INHALATION SCH (08:57)
[2018-03-10] MEDS ORDERED: cefTRIAXone IN SWFI 2,000 MG/20 ML SYRINGE IVP SCH (09:00)
== END 2018-03-10 11:32 | disposition home or self-care (01) | DRG 872 ==
LOC: EC 00:47 → 6SEL 03:38 → 4MS4W 03-09 12:49
PROVIDERS: ADMIT Internal Medicine; ATTEND Internal Medicine
PROC: B246ZZ4 Ultrasonography of Right and Left Heart, Transesophageal (ICD-10-PCS; principal; 2018-03-08 11:00)
DX: A41.81 Sepsis due to Enterococcus (principal); E87.2 Acidosis; I27.20 Pulmonary hypertension, unspecified; I07.1 Rheumatic tricuspid insufficiency; G40.909 Epilepsy, unspecified, not intractable, without status epilepticus; I44.7 Left bundle-branch block, unspecified; D50.9 Iron deficiency anemia, unspecified; J40 Bronchitis, not specified as acute or chronic; R09.82 Postnasal drip; J45.20 Mild intermittent asthma, uncomplicated; I10 Essential (primary) hypertension; F32.9 Major depressive disorder, single episode, unspecified; Z79.82 Long term (current) use of aspirin; Z79.51 Long term (current) use of inhaled steroids; Z79.899 Other long term (current) drug therapy; Z95.0 Presence of cardiac pacemaker; Z87.39 Personal history of other diseases of the musculoskeletal system and connective tissue; Z91.048 Other nonmedicinal substance allergy status; Z88.8 Allergy status to other drugs, medicaments and biological substances
CPT/HCPCS: 00000; 36415; 71045; 74176; 76937; 80053; 81001; 82728; 83540; 83550; 83605; 83880; 84484; 85025; 85610; 85730; 87040; 87070; 87077; 87086; 87186; 87205; 87324; 93005; 93306; 93312; 93320; 93325; 94640; 94760; 96361; 96374; 96375; 99285

== ENCOUNTER 2018-07-30 13:01 | Emergency (ER) | payer MEDICARE, BC ==
[2018-07-30] MEDS ORDERED: SODIUM CHLORIDE 0.9% 1,000 ML IV STA (13:11)
--- NOTE | 2018-07-30 13:16 | ED ---
Altered Mental Status HPI - General Stated Complaint: Altered, Poss Syncope Time Seen by Provider: 07/30/18 13:01 Source: patient, EMS, RN notes reviewed Mode of arrival: EMS - History of Present Illness Initial Comments: This is a 88-year-old male with a history of focal seizures who apparently going grocery shopping and was seen to start going down. He was helped to the ground no injury reported no tonic-clonic activity reported. Is very confused after the event only awake alert oriented 4 he was confused and oriented times one. He was brought in for evaluation no reports of fevers chills nausea vomiting sweats he has not had a seizure quite some time as time his progressed she's become more cognizant. No other modifying factors at this time MD Complaint: altered mental status, confusion, other - Related Data Home Medications Medication Instructions Recorded Confirmed Aspirin 81 mg PO BID 03/28/14 07/30/18 Gabapentin [Neurontin] 300 mg PO DAILY 03/28/14 07/30/18 Montelukast [Singulair] 10 mg PO DAILY 03/28/14 07/30/18 Omeprazole [PriLOSEC] 20 mg PO BID 03/28/14 07/30/18 Phenytoin Sodium Extended 300 mg PO BID 03/28/14 07/30/18 [Dilantin] Multivitamin [Men's Multi-Vitamin] 1 tab PO DAILY 03/29/14 07/30/18 Anacin 1,000 mg PO DAILY PRN 03/05/18 07/30/18 Ascorbic Acid [Vitamin C] 500 mg PO HS 03/05/18 07/30/18 Citalopram Hydrobromide 20 mg PO BID 03/05/18 07/30/18 [Citalopram HBr] Glucosamine Sulfate 1,500 mg PO HS 03/05/18 07/30/18 Loperamide HCl [Imodium A-D] 2 mg PO DAILY PRN 03/05/18 07/30/18 Magnesium Oxide [Mag-Ox] 250 mg PO HS 03/05/18 07/30/18 Metoprolol Succinate (ER) [Toprol 50 mg PO DAILY 03/05/18 07/30/18 XL] Tart Prabhakar 1 tab PO HS 03/05/18 07/30/18 diphenhydrAMINE [Benadryl] 25 mg PO DAILY PRN 03/05/18 07/30/18 levETIRAcetam [Keppra] 500 mg PO Q12HR 03/05/18 07/30/18 Allergies Allergy/AdvReac Type Severity Reaction Status Date / Time adhesive Allergy Rash/Hives Verified 07/30/18 13:47 iodine Allergy Anaphylaxis Verified 07/30/18 13:47 Review of Systems ROS Statement: Those systems with pertinent positive or pertinent negative responses have been documented in the HPI. ROS Other: All systems not noted in ROS Statement are negative. Past Medical History Past Medical History: Asthma, Hypertension, Seizure Disorder Additional Past Medical History / Comment(s): gout, joint. STREPTOCOCCUS BACTEREMIA. History of Any Multi-Drug Resistant Organisms: None Reported Past Surgical History: Unable to Obtain, Orthopedic Surgery Additional Past Surgical History / Comment(s): History of pacemaker placement initially placed 8 years ago and replaced about 1 year ago patient had a recent pacemaker check at cardiology office. Past Anesthesia/Blood Transfusion Reactions: No Reported Reaction Smoking Status: Never smoker General Exam - General Exam Comments Initial Comments: This is a well-developed well-nourished awake alert male he currently does know where he is. General appearance: alert, in no apparent distress, other (Somewhat slow to answer questions) Head exam: Present: atraumatic, normocephalic, normal inspection Eye exam: Present: normal appearance, PERRL, EOMI. Absent: scleral icterus, conjunctival injection, periorbital swelling ENT exam: Present: normal exam, mucous membranes moist Neck exam: Present: normal inspection. Absent: tenderness, meningismus, lymphadenopathy Respiratory exam: Present: normal lung sounds bilaterally. Absent: respiratory distress, wheezes, rales, rhonchi, stridor Cardiovascular Exam: Present: regular rate, normal rhythm, normal heart sounds. Absent: systolic murmur, diastolic murmur, rubs, gallop, clicks GI/Abdominal exam: Present: soft, normal bowel sounds. Absent: distended, tenderness, guarding, rebound, rigid Extremities exam: Present: normal inspection, full ROM, normal capillary refill. Absent: tenderness, pedal edema, joint swelling, calf tenderness Back exam: Present: normal inspection Neurological exam: Present: alert, oriented X3, CN II-XII intact Psychiatric exam: Present: normal affect, normal mood Skin exam: Present: warm, dry, intact, normal color. Absent: rash Course Vital Signs 07/30/18 13:31 Temperature 98.1 F Pulse Rate 59 L Respiratory 18 Rate Blood Pressure 150/69 O2 Sat by Pulse 93 L Oximetry Medical Decision Making - Medical Decision Making Reevaluation the patient is awake alert oriented 3 back to normal per his daughter. Patient will be discharged she did describe his usual activity with seizure. - Lab Data Result diagrams: 07/30/18 13:20 07/30/18 13:20 Lab Results 07/30/18 07/30/18 07/30/18 Range/Units 13:20 13:20 13:20 WBC 6.5 (3.8-10.6) k/uL RBC 3.79 L (4.30-5.90) m/uL Hgb 12.5 L (13.0-17.5) gm/dL Hct 36.9 L (39.0-53.0) % MCV 97.3 (80.0-100.0) fL MCH 32.9 (25.0-35.0) pg MCHC 33.8 (31.0-37.0) g/dL RDW 14.3 (11.5-15.5) % Plt Count 218 (150-450) k/uL Neutrophils % 57 % Lymphocytes % 25 % Monocytes % 7 % Eosinophils % 9 % Basophils % 1 % Neutrophils # 3.7 (1.3-7.7) k/uL Lymphocytes # 1.6 (1.0-4.8) k/uL Monocytes # 0.4 (0-1.0) k/uL Eosinophils # 0.6 (0-0.7) k/uL Basophils # 0.1 (0-0.2) k/uL Sodium 141 (137-145) mmol/L Potassium 4.4 (3.5-5.1) mmol/L Chloride 109 H (98-107) mmol/L Carbon Dioxide 26 (22-30) mmol/L Anion Gap 6 mmol/L BUN 24 H (9-20) mg/dL Creatinine 0.88 (0.66-1.25) mg/dL Est GFR (CKD-EPI)AfAm 90 (>60 ml/min/1.73 sqM) Est GFR (CKD-EPI)NonAf 77 (>60 ml/min/1.73 sqM) Glucose 122 H (74-99) mg/dL Calcium 8.3 L (8.4-10.2) mg/dL Magnesium 2.3 (1.6-2.3) mg/dL Total Bilirubin 0.2 (0.2-1.3) mg/dL AST 20 (17-59) U/L ALT 29 (21-72) U/L Alkaline Phosphatase 130 H (38-126) U/L Total Creatine Kinase 20 L (55-170) U/L CK-MB (CK-2) 0.5 (0.0-2.4) ng/mL CK-MB (CK-2) Rel Index 2.5 Troponin I <0.012 (0.000-0.034) ng/mL Total Protein 6.8 (6.3-8.2) g/dL Albumin 3.6 (3.5-5.0) g/dL Phenytoin 14.4 ug/mL - EKG Data -: EKG Interpreted by Co EKG shows normal: sinus rhythm (Says bradycardia first-degree AV block rate was 59. Interval 214 QRS 164 QT since QTC 496/491 left exodeviation left bundle- branch block pattern) Disposition Clinical Impression: Focal seizure Disposition: HOME SELF-CARE Condition: Good Instructions: Recurrent Seizures in Adults (ED) Is patient prescribed a controlled substance at d/c from ED?: No Referrals: Julio Adams MD [Primary Care Provider] - 1-2 days
[2018-07-30 13:37] VITALS: RESP 18; TEMP 98.1
[2018-07-30 13:46] LABS: Basophils # (A) 0.1 k/uL (0-0.2); Basophils % (A) 1 %; Eosinophils # (A) 0.6 k/uL (0-0.7); Eosinophils % (A) 9 %; HCT 36.9 % (39.0-53.0); HGB 12.5 gm/dL (13.0-17.5); Lymphocytes # (A) 1.6 k/uL (1.0-4.8); Lymphocytes % (A) 25 %; MCH 32.9 pg (25.0-35.0); MCHC 33.8 g/dL (31.0-37.0); MCV 97.3 fL (80.0-100.0); Mean Platelet Volume 6.6; Monocytes # (A) 0.4 k/uL (0-1.0); Monocytes % (A) 7 %; Neutrophils # (A) 3.7 k/uL (1.3-7.7); Neutrophils % (A) 57 %; Platelet Count 218 k/uL (150-450); RBC 3.79 m/uL (4.30-5.90); RDW 14.3 % (11.5-15.5); WBC 6.5 k/uL (3.8-10.6)
[2018-07-30 14:00] LABS: Albumin 3.6 g/dL (3.5-5.0); Calcium 8.3 mg/dL (8.4-10.2); Magnesium 2.3 mg/dL (1.6-2.3); Phenytoin (Dilantin) 14.4 ug/mL; Potassium 4.4 mmol/L (3.5-5.1); Total Bilirubin 0.2 mg/dL (0.2-1.3); Total Protein 6.8 g/dL (6.3-8.2)
[2018-07-30 14:08] LABS: Creatine Kinase 20 U/L (55-170)
[2018-07-30 14:22] LABS: Creatine Kinase MB 0.5 ng/mL (0.0-2.4); Troponin I <0.012 ng/mL (0.000-0.034)
[2018-07-30 14:40] VITALS: BP 143/76; PULSE 60
== END 2018-07-30 14:38 | disposition home or self-care (01) ==
LOC: EC 13:01
DX: G40.909 Epilepsy, unspecified, not intractable, without status epilepticus (principal); J45.909 Unspecified asthma, uncomplicated; I10 Essential (primary) hypertension; Z79.82 Long term (current) use of aspirin; Z79.899 Other long term (current) drug therapy; Z91.048 Other nonmedicinal substance allergy status; Z88.8 Allergy status to other drugs, medicaments and biological substances; Z95.0 Presence of cardiac pacemaker
CPT/HCPCS: 36415; 80053; 80185; 82550; 82553; 83735; 84484; 85025; 93005; 96360; 99284

== ENCOUNTER 2020-09-17 11:54 | Emergency (ER) | payer BC, MEDICARE ==
[2020-09-17 12:05] VITALS: RESP 18
[2020-09-17] MEDS ORDERED: DIPH,PERTUS(ACELL)TETVAC-LF 0.5 ML VIAL IM ONE (12:51)
[2020-09-17] MEDS ORDERED: GELATIN SPONGE,ABSORB (LARGE) 1 EACH SPONGE TOPICAL STA (12:55)
--- NOTE | 2020-09-17 13:08 | ED ---
General Adult HPI - General Source: patient, EMS, RN notes reviewed, old records reviewed Mode of arrival: EMS Limitations: no limitations <Buster Chapman - Last Filed: 09/17/20 15:10> <Rebeca Thompson - Last Filed: 09/17/20 15:41> - General Chief complaint: Seizure Stated complaint: seizures/hand lac Time Seen by Provider: 09/17/20 12:00 - History of Present Illness Initial comments: this is an 89-year-old male who comes into the emergency department with past medical history significant for seizures. Patient states he stopped his gabapentin a few days ago because he ran out. Patient states she's also on Dilantin. Patient states he doesn't remember what happened but according to the daughter he fell through a glass table cut his right hand. he has no complaints at this time. Daughter states she was confused for about 10 minutes. Patient denies hitting his head patient denies any neck pain. Patient denies any back pain. Patient denies chest pain. Patient denies difficulty breathing shortest breath per patient denies abdominal pain patient denies nausea vomiting diarrhea.patient currently states he feels at his baseline other than the slight pain in the right hand. (Buster Chapman) - Related Data Home Medications Medication Instructions Recorded Confirmed Aspirin 81 mg PO BID 03/28/14 07/30/18 Gabapentin [Neurontin] 300 mg PO DAILY 03/28/14 07/30/18 Montelukast [Singulair] 10 mg PO DAILY 03/28/14 07/30/18 Omeprazole [PriLOSEC] 20 mg PO BID 03/28/14 07/30/18 Phenytoin Sodium Extended 300 mg PO BID 03/28/14 07/30/18 [Dilantin] Multivitamin [Men's Multi-Vitamin] 1 tab PO DAILY 03/29/14 07/30/18 Anacin 1,000 mg PO DAILY PRN 03/05/18 07/30/18 Ascorbic Acid [Vitamin C] 500 mg PO HS 03/05/18 07/30/18 Citalopram Hydrobromide 20 mg PO BID 03/05/18 07/30/18 [Citalopram HBr] Glucosamine Sulfate 1,500 mg PO HS 03/05/18 07/30/18 Loperamide HCl [Imodium A-D] 2 mg PO DAILY PRN 03/05/18 07/30/18 Magnesium Oxide [Mag-Ox] 250 mg PO HS 03/05/18 07/30/18 Metoprolol Succinate (ER) [Toprol 50 mg PO DAILY 03/05/18 07/30/18 XL] Tart Prabhakar 1 tab PO HS 03/05/18 07/30/18 diphenhydrAMINE [Benadryl] 25 mg PO DAILY PRN 03/05/18 07/30/18 levETIRAcetam [Keppra] 500 mg PO Q12HR 03/05/18 07/30/18 Allergies Allergy/AdvReac Type Severity Reaction Status Date / Time adhesive Allergy Rash/Hives Verified 09/17/20 12:05 iodine Allergy Anaphylaxis Verified 09/17/20 12:05 Review of Systems ROS Other: All systems not noted in ROS Statement are negative. <Buster Chapman - Last Filed: 09/17/20 15:10> ROS Other: All systems not noted in ROS Statement are negative. <Rebeca Thmopson - Last Filed: 09/17/20 15:41> ROS Statement: Those systems with pertinent positive or pertinent negative responses have been documented in the HPI. Past Medical History Past Medical History: Asthma, Hypertension, Seizure Disorder Additional Past Medical History / Comment(s): gout, joint. STREPTOCOCCUS BACTEREMIA. History of Any Multi-Drug Resistant Organisms: None Reported Past Surgical History: Unable to Obtain, Orthopedic Surgery Additional Past Surgical History / Comment(s): History of pacemaker placement i nitially placed 8 years ago and replaced about 1 year ago patient had a recent pacemaker check at cardiology office. Past Anesthesia/Blood Transfusion Reactions: No Reported Reaction Past Psychological History: Depression Past Alcohol Use History: Daily Past Drug Use History: None Reported <Buster Chapman - Last Filed: 09/17/20 15:10> General Exam Limitations: no limitations <Buster Chapman - Last Filed: 09/17/20 15:10> - General Exam Comments Initial Comments: GENERAL: Patient is well-developed and well-nourished. Patient is nontoxic and well- hydrated and is in no acute distress. ENT: Neck is soft and supple. No significant lymphadenopathy is noted. Oropharynx is clear. Moist mucous membranes. Neck has full range of motion without eliciting any pain. patient has no spinous process tenderness. EYES: The sclera were anicteric and conjunctiva were pink and moist. Extraocular movements were intact and pupils were equal round and reactive to light. Eyelids were unremarkable. PULMONARY: Unlabored respirations. Good breath sounds bilaterally. No audible rales rhonchi or wheezing was noted. CARDIOVASCULAR: There is a regular rate and rhythm without any murmurs gallops or rubs. ABDOMEN: Soft and nontender with normal bowel sounds. SKIN: there is a laceration on the right hand measuring about 8 cm NEUROLOGIC: Patient is alert and oriented x3. Cranial nerves II through XII are grossly intact. Motor and sensory are also intact. Normal speech, volume and content. Symmetrical smile. MUSCULOSKELETAL: patient has a 8 cm laceration to the medial aspect of the right hand. Patient has an abrasion on the left upper back that is nontender to palpation. LYMPHATICS: No significant lymphadenopathy is noted PSYCHIATRIC: Normal psychiatric evaluation. (Buster Chapman) Course Vital Signs 09/17/20 09/17/20 11:56 15:22 Temperature 97.4 F L 97.4 F L Pulse Rate 80 80 Respiratory 18 18 Rate Blood Pressure 151/75 142/76 O2 Sat by Pulse 95 95 Oximetry Procedures - Laceration Laceration #1 Consent Obtained: verbal consent Indication: laceration Site: hand Size (cm): 8 Description: irregular, clean Depth: simple, single layer Anesthetic Used: lidocaine 1% Anesthesia Technique: local infiltration Amount (mls): 6 Pre-repair: wound explored, irrigated extensively, deep structures intact Type of Sutures: nylon Size of Sutures: 5-0 Number of Sutures: 18 Technique: simple, interrupted Patient Tolerated Procedure: well, no complications <Rebeca Thompson - Last Filed: 09/17/20 15:41> Medical Decision Making - Lab Data Result diagrams: 09/17/20 13:27 09/17/20 13:27 <Buster Chapman - Last Filed: 09/17/20 15:10> - Lab Data Result diagrams: 09/17/20 13:27 09/17/20 13:27 <Rebeca Thompson - Last Filed: 09/17/20 15:41> - Medical Decision Making EKG shows sinus rhythm at 91 bpm MI interval is 232 QRS is 160 QT interval 446 QTC is 548. Patient's EKG shows no ST segment elevation or depression.patient has left bundle branch block There is no abnormality seen on the x-ray of the hand or chest x-ray. I gave the patient 600 mg of gabapentin (Buster Chapman) - Lab Data Lab Results 09/17/20 09/17/20 09/17/20 Range/Units 13:27 13:27 13:27 WBC 8.1 (3.8-10.6) k/uL RBC 3.91 L (4.30-5.90) m/uL Hgb 12.9 L (13.0-17.5) gm/dL Hct 38.5 L (39.0-53.0) % MCV 98.5 (80.0-100.0) fL MCH 33.1 (25.0-35.0) pg MCHC 33.6 (31.0-37.0) g/dL RDW 14.4 (11.5-15.5) % Plt Count 234 (150-450) k/uL MPV 7.0 Neutrophils % 59 % Lymphocytes % 24 % Monocytes % 6 % Eosinophils % 7 % Basophils % 1 % Neutrophils # 4.8 (1.3-7.7) k/uL Lymphocytes # 2.0 (1.0-4.8) k/uL Monocytes # 0.5 (0-1.0) k/uL Eosinophils # 0.6 (0-0.7) k/uL Basophils # 0.1 (0-0.2) k/uL PT (9.0-12.0) sec INR (<1.2) APTT (22.0-30.0) sec Sodium 138 (137-145) mmol/L Potassium 4.6 (3.5-5.1) mmol/L Chloride 107 (98-107) mmol/L Carbon Dioxide 24 (22-30) mmol/L Anion Gap 7 mmol/L BUN 20 (9-20) mg/dL Creatinine 0.81 (0.66-1.25) mg/dL Est GFR (CKD-EPI)AfAm >90 (>60 ml/min/1.73 sqM) Est GFR (CKD-EPI)NonAf 79 (>60 ml/min/1.73 sqM) Glucose 125 H (74-99) mg/dL Calcium 8.7 (8.4-10.2) mg/dL Magnesium 2.2 (1.6-2.3) mg/dL Total Bilirubin 0.4 (0.2-1.3) mg/dL AST 28 (17-59) U/L ALT 19 (4-49) U/L Alkaline Phosphatase 133 H (38-126) U/L Troponin I <0.012 (0.000-0.034) ng/mL Total Protein 7.2 (6.3-8.2) g/dL Albumin 3.9 (3.5-5.0) g/dL Phenytoin 11.8 ug/mL 09/17/20 Range/Units 14:55 WBC (3.8-10.6) k/uL RBC (4.30-5.90) m/uL Hgb (13.0-17.5) gm/dL Hct (39.0-53.0) % MCV (80.0-100.0) fL MCH (25.0-35.0) pg MCHC (31.0-37.0) g/dL RDW (11.5-15.5) % Plt Count (150-450) k/uL MPV Neutrophils % % Lymphocytes % % Monocytes % % Eosinophils % % Basophils % % Neutrophils # (1.3-7.7) k/uL Lymphocytes # (1.0-4.8) k/uL Monocytes # (0-1.0) k/uL Eosinophils # (0-0.7) k/uL Basophils # (0-0.2) k/uL PT 10.6 (9.0-12.0) sec INR 1.0 (<1.2) APTT 21.5 L (22.0-30.0) sec Sodium (137-145) mmol/L Potassium (3.5-5.1) mmol/L Chloride (98-107) mmol/L Carbon Dioxide (22-30) mmol/L Anion Gap mmol/L BUN (9-20) mg/dL Creatinine (0.66-1.25) mg/dL Est GFR (CKD-EPI)AfAm (>60 ml/min/1.73 sqM) Est GFR (CKD-EPI)NonAf (>60 ml/min/1.73 sqM) Glucose (74-99) mg/dL Calcium (8.4-10.2) mg/dL Magnesium (1.6-2.3) mg/dL Total Bilirubin (0.2-1.3) mg/dL AST (17-59) U/L ALT (4-49) U/L Alkaline Phosphatase (38-126) U/L Troponin I (0.000-0.034) ng/mL Total Protein (6.3-8.2) g/dL Albumin (3.5-5.0) g/dL Phenytoin ug/mL Disposition Is patient prescribed a controlled substance at d/c from ED?: No Time of Disposition: 15:11 <Buster Chapman - Last Filed: 09/17/20 15:10> <Rebeca Thompson - Last Filed: 09/17/20 15:41> Clinical Impression: Generalized seizure, Laceration of hand Disposition: HOME SELF-CARE Condition: Good Instructions (If sedation given, give patient instructions): Recurrent Seizures in Adults (ED) Referrals: Julio Adams MD [Primary Care Provider] - 1-2 days
[2020-09-17] MEDS ORDERED: LIDOCAINE 1%-EPI 1:100,000 20 ML VIAL SQ STA (13:18)
[2020-09-17 13:47] LABS: Basophils # (A) 0.1 k/uL (0-0.2); Basophils % (A) 1 %; Eosinophils # (A) 0.6 k/uL (0-0.7); Eosinophils % (A) 7 %; HCT 38.5 % (39.0-53.0); HGB 12.9 gm/dL (13.0-17.5); Lymphocytes % (A) 24 %; MCH 33.1 pg (25.0-35.0); MCHC 33.6 g/dL (31.0-37.0); MCV 98.5 fL (80.0-100.0); Monocytes # (A) 0.5 k/uL (0-1.0); Monocytes % (A) 6 %; Neutrophils # (A) 4.8 k/uL (1.3-7.7); Neutrophils % (A) 59 %; Platelet Count 234 k/uL (150-450); RBC 3.91 m/uL (4.30-5.90); RDW 14.4 % (11.5-15.5); WBC 8.1 k/uL (3.8-10.6)
--- NOTE | 2020-09-17 13:52 | XR ---
EXAMINATION TYPE: XR chest 2V DATE OF EXAM: 09/17/2020 COMPARISON: 03/05/2018 HISTORY: Shortness of breath TECHNIQUE: Frontal and lateral views of the chest are obtained. FINDINGS: Scattered senescent parenchymal changes noted. Hyperinflation compatible with COPD. No evidence for infiltrate. No evidence for atelectasis. Heart size is stable. Mediastinal structures are stable and grossly unremarkable. No evidence for hilar prominence. Degenerative changes dorsal spine. IMPRESSION: 1. No evidence for acute pulmonary disease.
--- NOTE | 2020-09-17 13:53 | XR ---
EXAMINATION TYPE: XR hand complete RT DATE OF EXAM: 09/17/2020 CLINICAL HISTORY: pain TECHNIQUE: Frontal, lateral and oblique images of the right hand are obtained. COMPARISON: None. FINDINGS: There is no acute fracture/dislocation evident. The joint spaces appear within normal limi ts. Soft tissue laceration noted overlying right. No definite radiopaque foreign body appreciated at this time. IMPRESSION: There is no acute fracture or dislocation ICD 10 NO FRACTURE, INITIAL EVALUATION
[2020-09-17 14:07] LABS: ALT 19 U/L (4-49); AST 28 U/L (17-59); African American GFR (CKD) >90 (>60 ml/min/1.73 sqM); Albumin 3.9 g/dL (3.5-5.0); Alkaline Phosphatase 133 U/L (38-126); Anion Gap 7 mmol/L; Blood Urea Nitrogen 20 mg/dL (9-20); Calcium 8.7 mg/dL (8.4-10.2); Carbon Dioxide 24 mmol/L (22-30); Chloride 107 mmol/L (98-107); Glucose 125 mg/dL (74-99); Magnesium 2.2 mg/dL (1.6-2.3); Non-African American GFR(CKD) 79 (>60 ml/min/1.73 sqM); Phenytoin (Dilantin) 11.8 ug/mL; Potassium 4.6 mmol/L (3.5-5.1); Sodium 138 mmol/L (137-145); Total Bilirubin 0.4 mg/dL (0.2-1.3); Total Protein 7.2 g/dL (6.3-8.2)
[2020-09-17] MEDS ORDERED: GABAPENTIN 300 MG CAP PO STA (15:10)
[2020-09-17 15:15] LABS: Prothrombin Time 10.6 sec (9.0-12.0)
[2020-09-17] MEDS ORDERED: PHENYTOIN SODIUM INJ 500 MG in SODIUM CHLORIDE 0.9% 100 ML IVPB STA (15:15)
[2020-09-17 15:16] LABS: Partial Thromboplastin Time 21.5 sec (22.0-30.0)
[2020-09-17 16:27] VITALS: BP 158/82; PULSE 84; TEMP 97.9
== END 2020-09-17 16:20 | disposition home or self-care (01) ==
LOC: EC 11:54
DX: S61.411A Laceration without foreign body of right hand, initial encounter (principal); S20.412A Abrasion of left back wall of thorax, initial encounter; G40.409 Other generalized epilepsy and epileptic syndromes, not intractable, without status epilepticus; I44.7 Left bundle-branch block, unspecified; I10 Essential (primary) hypertension; J45.909 Unspecified asthma, uncomplicated; F32.9 Major depressive disorder, single episode, unspecified; Z79.899 Other long term (current) drug therapy; Z79.82 Long term (current) use of aspirin; Z91.048 Other nonmedicinal substance allergy status; Z23 Encounter for immunization; W18.02XA Striking against glass with subsequent fall, initial encounter; Y92.009 Unspecified place in unspecified non-institutional (private) residence as the place of occurrence of the external cause
CPT/HCPCS: 36415; 93005; 80053; 80185; 83735; 84484; 85025; 85610; 85730; 73130; 71046; 90715; 99285; 12004; 96365; 90471; J1165